=== PATIENT | female | born 1990 ===

== ENCOUNTER 2020-08-06 15:42 | Outpatient (REF) | payer SELFPAY ==
--- NOTE | 2020-08-06 | XR_ITS ---
EXAMINATION: XR CHEST CLINICAL INFORMATION: TB screening COMPARISON: Previous chest x-ray February 2020 TECHNIQUE: Frontal view of the chest was obtained. FINDINGS: No significant abnormality is noted involving the heart, lungs, mediastinum, bony thorax or soft tissues. XR/XR chest 1V IMPRESSION: Unremarkable examination.
== END 2020-08-06 15:43 | disposition home or self-care (01) ==
LOC: HO.XRAY 15:42
PROVIDERS: PCP Internal Medicine; Visit Provider Internal Medicine Critical Care Medicine
DX: Z11.1 Encounter for screening for respiratory tuberculosis (principal)
CPT/HCPCS: 71045

== ENCOUNTER 2020-11-12 12:45 | Outpatient (REF) | payer OTHER, SELFPAY | END 2020-11-12 12:46 | disposition home or self-care (01) | LOC: HO.LAB 12:45 | PROVIDERS: Visit Provider Internal Medicine | DX: Z20.822 Contact with and (suspected) exposure to COVID-19 (principal) | CPT/HCPCS: 36415; C9803; U0003; U0005 ==

== ENCOUNTER → 2021-03-05 10:06 | Outpatient (BNVA) | payer SELFPAY | DX: Z11.1 Encounter for screening for respiratory tuberculosis (principal) | CPT/HCPCS: 36415; 86481 ==

== ENCOUNTER 2021-05-04 09:07 | Emergency (ER) | payer SELFPAY ==
--- NOTE | ~2021-05-04 | CT_ITS ---
EXAMINATION: CT HEAD WITHOUT CONTRAST CLINICAL INFORMATION: Headache and seizure COMPARISON: August 27, 2018 TECHNIQUE: Contiguous axial imaging was performed from the skull base to vertex without intravenous administration of contrast. This CT examination was performed using dose optimization techniques as appropriate, variously including the following: *Automated exposure control *Adjustment of mA and/or kV according to patient size (this includes techniques or standardized protocols for targeted exams where dose is matched to indication/reason for exam; i.e. extremities or head) *Use of iterative reconstruction technique DLP: 631 mGy-cm FINDINGS: There is no evidence of acute intracranial hemorrhage or territorial infarction. No abnormal mass effect or midline shift is seen. [place] to white matter differentiation is well preserved. No extra-axial fluid collections are identified. The ventricles are normal in size. There is no abnormal attenuation within the brain parenchyma. The osseous structures and soft tissues are normal. The mastoid air cells and visualized portions of the paranasal sinuses are well aerated. CT/CT head/brain wo con IMPRESSION: No acute intracranial pathology.
[2021-05-04 09:13] VITALS: BP 128/90; PULSE 80; RESP 16; TEMP 36.4; O2SAT 99; BMI 32.9
--- NOTE | 2021-05-04 09:26 | ED.NEUROSD ---
HPI - Neuro Symptoms/Deficit General Chief Complaint: Neuro Symptoms/Deficit Stated Complaint: LUMP IN HEAD SORE TO TOUCH Time Seen by Provider: 05/04/21 09:26 Source: family Mode of arrival: ambulatory Limitations: no limitations History of Present Illness HPI Narrative: Patients spouse saw her having a panic attack that progressed into a seizure. Patient was unresponsive convulsing and foaming out of the mouth 1 month ago. Patient continues to have headaches and have pressure. Patient has had CT of head, MRI, and eeg in 2008. At one point patient had been on seizure medication. Onset (ago): month(s) Timing confirmed by: spouse History of same: Yes Severity: mild Quality: other (pressure) Exacerbating factors: other (stress) Context: gradual onset Associated symptoms: headaches Related Data Previous Rx's Medication Instructions Recorded naproxen [Naprosyn] 500 mg PO BID #20 tab 05/04/21 Allergies Allergy/AdvReac Type Severity Reaction Status Date / Time egg [Egg] Allergy Unknown UNKNOWN Unverified 09/24/20 13:09 morphine Allergy Unknown Verified 09/24/20 13:09 oxycodone [Percocet] Allergy Unknown Verified 09/24/20 13:09 acetaminophen [From PERCOCET] AdvReac Unknown NAUSEA & Unverified 09/24/20 13:09 VOMITING EGGS Allergy Unknown Uncoded 09/24/20 13:09 eggs Allergy Unknown Uncoded 09/24/20 13:09 From PERCOCET AdvReac Unknown NAUSEA & Uncoded 09/24/20 13:09 VOMITING Review of Systems Constitutional: Constitutional: Reports no additional constitutional complaints Eyes: Eyes: Reports no additional eye complaints ENT: Denies dizziness Cardiovascular: Cardiovascular: Reports no additional cardiovascular complaints Respiratory: Respiratory: Reports as per HPI Gastrointestinal: Gastrointestinal: Reports no additional gastrointestinal complaints Genitourinary: Genitourinary: Reports no additional female genitourinary complaints Musculoskeletal: Musculoskeletal: Reports no additional musculoskeletal complaints Integumentary/Breasts: Skin/Breast: Denies rash Neurologic: Reports system reviewed and no additional complaints, except as documented, Denies dizziness and Denies Sensory deficit (Neuro) Psychiatric: Psychiatric: Denies anxiety PMFSH Social History Social History Advance Directives: Yes Advance Directives Information Provided: Yes Advance Directives on File: No Patient : No Physical Exam Vital Signs: Vital Signs: Last Vital Signs Temp 97.5 F 05/04/21 09:13 Pulse 80 05/04/21 09:13 Resp 16 05/04/21 09:13 BP 128/90 H 05/04/21 09:13 Pulse Ox 99 05/04/21 09:13 Body Mass Index 32.9 Const: General: healthy appearing Nutritional Appearance: average body habitus Orientation/consciousness: oriented to person and patient oriented x3 Limitations: no limitations HENMT: Head: Yes normal to inspection Ears: external ears normal General nose exam: Normal external nose present Mouth: Normal oral and palatal mucosa present and oropharynx normal Throat: Yes posterior oropharynx normal Eyes: General: appearance normal, both eyes and all related structures Neck: Other: supple Neck: Yes normal visual inspection Chest: Chest palpation & inspection: normal inspection of the chest Resp: Auscultation: clear to auscultation bilaterally Cardio: Jugular venous distension: no JVD Rate: regular rate Rhythm: regular rhythm Heart sounds: S1 normal heart sound present and S2 normal heart sound present GI: Inspection: Yes normal to inspection Palpation (GI): Soft to palpation, nontender and No hepatosplenomegaly present Auscultation: normal bowel sounds : General: Yes no CVA tenderness Back/Spine/Pelvis: Back: no CVA tenderness Skin: General skin exam: no rashes or lesions noted Neuro: General: oriented to person and patient oriented x3 Cranial nerves: Yes CN's II-XII intact bilaterally Motor exam (neuro): 5/5 motor strength present throughout Sensory Exam: No Sensory deficit (Neuro) Extrem: General: Yes normal to inspection Psych: Appearance: grossly normal Course Reevaluation(s) Reevaluation #1: Labs, CT scan and EKG normal. History sounds like an anxiety component followed by possible seizure. will not start any seizure medication at this time. Will give naprosyn for headache and have patient follow up with her PMD Time: 11:12 [facility] [place] - Neuro Symptoms/Deficit Lab Data Result diagrams: 05/04/21 10:20 05/04/21 10:20 Labs: Lab Results 05/04/21 05/04/21 Range/Units 10:20 10:20 WBC 4.1 L (4.8-10.8) X10*3/uL RBC 4.16 L (4.20-5.50) X10*6/uL Hgb 13.0 (12.0-16.0) g/dl Hct 36.6 L (37-47) % MCV 88.0 (80-98) fL MCH 31.3 (27.0-33.0) pg MCHC 35.5 H (31.0-35.0) g/dl RDW 12.7 (11.0-16.0) % Plt Count 245 (160-400) X10*3/uL MPV 9.9 (9.4-12.3) fL Immature Gran % (Auto) 0.2 (0.0-0.4) % Neut % (Auto) 54.6 (45-73) % Lymph % (Auto) 31.9 (20-40) % [place] % (Auto) 9.2 (2-11) % Eos % (Auto) 3.6 (0-4) % Baso % (Auto) 0.5 (0-2) % Lymph # (Auto) 1.3 (1.2-4.9) X10*3/uL [place] # (Auto) 0.4 (0.1-1.2) X10*3/uL Eos # (Auto) 0.2 (0.0-0.4) X10*3/uL Baso # (Auto) 0.0 (0.0-0.2) X10*3/uL Abs Immat Gran (auto) 0.01 (0.00-0.03) X10*3/uL Absolute Neuts (auto) 2.3 (2.0-8.3) X10*3/uL Absolute Nucleated RBC 0.000 (0.0-0.012) X10*3/uL Nucleated RBC % (auto) 0.0 (0.0-0.2) /100WBC Sodium 138 (135-145) mmol/L Potassium 4.3 (3.3-5.1) mmol/L Chloride 105 (96-108) mmol/L Carbon Dioxide 26 (22-29) mmol/L Anion Gap 11 L (12-20) BUN 12 (9-16) mg/dL Creatinine 0.79 (0.5-1.4) mg/dL Estim Creat Clear Calc 105.1 Estimated GFR > 60 Random Glucose 91 (60-115) mg/dL Calcium 8.8 (8.4-10.2) mg/dL Imaging Data CT scan - head: Radiologist's impression: IMPRESSION: No acute intracranial pathology. ECG Data Attestation: I personally reviewed and interpreted this ECG as follows: Interpretation: normal sinus [address] or twave changes Discharge Plan Discharge Clinical Impression: Headache Qualifiers: Headache type: unspecified Headache chronicity pattern: acute headache Intractability: not intractable Qualified Code(s): R51.9 - Headache, unspecified Patient Disposition: Home, Self-Care Instructions: Acute Headache (ED) Prescriptions: New naproxen [Naprosyn] 500 mg tablet 500 mg PO BID Qty: 20 RF: 0 Referrals: Tomas Victoria MD [Primary Care Provider] - 1 week
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
--- NOTE | 2021-05-04 09:35 | ECG_ITS ---
Test Reason : NEURO Blood Pressure : / mmHG Vent. Rate : 070 BPM Atrial Rate : 070 BPM P-R Int : 140 ms QRS Dur : 072 ms QT Int : 378 ms P-R-T Axes : 018 054 037 degrees QTc Int : 408 ms Normal sinus rhythm Normal ECG When compared with ECG of 04-JAN-2006 14:50, QT has shortened Referred By: Salazar Viera Electronically Signed By:QUINN JANE
[2021-05-04] MEDS: Ketorolac Tromethamine 60 MG/2 ML VIAL IM (09:51)
[2021-05-04 10:24] LABS: MANUAL DIFF FLAG NO
[2021-05-04 10:27] LABS: Basophils Percent Auto 0.5 % (0-2); Eosinophils Absolute Auto 0.2 X10*3/uL (0.0-0.4); Eosinophils Percent Auto 3.6 % (0-4); Hematocrit 36.6 % (37-47); Imm Gran Abs Auto 0.01 X10*3/uL (0.00-0.03); Imm Gran Pct Auto 0.2 % (0.0-0.4); Lymphocytes Absolute Auto 1.3 X10*3/uL (1.2-4.9); Lymphocytes Percent Auto 31.9 % (20-40); Mean Corpuscular HGB Conc 35.5 g/dl (31.0-35.0); Mean Corpuscular Hemoglobin 31.3 pg (27.0-33.0); Mean Platelet Volume 9.9 fL (9.4-12.3); Monocytes Absolute Auto 0.4 X10*3/uL (0.1-1.2); Monocytes Percent Auto 9.2 % (2-11); Neutrophils Absolute Auto 2.3 X10*3/uL (2.0-8.3); Neutrophils Percent Auto 54.6 % (45-73); Platelet Count 245 X10*3/uL (160-400); Red Blood Count 4.16 X10*6/uL (4.20-5.50); Red Cell Distribution Width 12.7 % (11.0-16.0); White Blood Count 4.1 X10*3/uL (4.8-10.8)
[2021-05-04 10:46] LABS: Anion Gap 11 (12-20); Blood Urea Nitrogen 12 mg/dL (9-16); Calcium 8.8 mg/dL (8.4-10.2); Carbon Dioxide 26 mmol/L (22-29); Chloride 105 mmol/L (96-108); Creatinine Clr Calc Pharmacy 105.1; Estimated Glomerular Filt Rate > 60; Glucose Random 91 mg/dL (60-115); Potassium 4.3 mmol/L (3.3-5.1); Sodium 138 mmol/L (135-145)
[2021-05-04 11:09] VITALS: BP 126/85; PULSE 71; RESP 16; O2SAT 99
== END 2021-05-04 11:35 | disposition home or self-care (01) ==
PROVIDERS: Emergency Provider Emergency Medicine; PCP Internal Medicine
DX: R51.9 Headache, unspecified (principal)
CPT/HCPCS: 36415; 70450; 80048; 85025; 93005; 96372; 99284; 99285; J1885

== ENCOUNTER 2022-03-11 15:28 | Outpatient (REF) | payer OTHER, SELFPAY ==
[2022-03-11 15:45] LABS: MANUAL DIFF FLAG NO
[2022-03-11 15:56] LABS: Basophils Absolute Auto 0.1 X10*3/uL (0.0-0.2); Eosinophils Absolute Auto 0.1 X10*3/uL (0.0-0.4); Eosinophils Percent Auto 1.2 % (0-4); Hematocrit 38.4 % (37.0-47.0); Hemoglobin 13.4 g/dl (12.0-16.0); Imm Gran Abs Auto 0.02 X10*3/uL (0.00-0.03); Imm Gran Pct Auto 0.4 % (0.0-0.4); Lymphocytes Absolute Auto 1.8 X10*3/uL (1.2-4.9); Lymphocytes Percent Auto 34.7 % (20-40); Mean Corpuscular HGB Conc 34.9 g/dl (31.0-35.0); Mean Corpuscular Hemoglobin 30.8 pg (27.0-33.0); Mean Corpuscular Volume 88.3 fL (80.0-98.0); Mean Platelet Volume 10.3 fL (9.4-12.3); Monocytes Absolute Auto 0.4 X10*3/uL (0.1-1.2); Monocytes Percent Auto 7.8 % (2-11); Neutrophils Absolute Auto 2.8 x10*3/uL (2.0-8.3); Neutrophils Percent Auto 54.9 % (45-73); Platelet Count 315 X10*3/uL (160-400); Red Blood Count 4.35 X10*6/uL (4.20-5.50); Red Cell Distribution Width 13.1 % (11.0-16.0); White Blood Count 5.1 X10*3/uL (4.8-10.8)
[2022-03-11 16:20] LABS: Alanine Aminotransferase 20 U/L (0-31); Alkaline Phosphatase 59 U/L (39-117); Anion Gap 11 (12-20); Aspartate Amino Transferase 17 U/L (5-31); Bilirubin Total 0.4 mg/dL (0.0-1.0); Blood Urea Nitrogen 12 mg/dL (9-16); C Reactive Protein 0.23 mg/dL (< or = 0.50); Calcium 9.4 mg/dL (8.4-10.2); Carbon Dioxide 26 mmol/L (22-29); Chloride 108 mmol/L (96-108); Cholesterol 164 mg/dL; Estimated Glomerular Filt Rate > 60; Glucose Random 104 mg/dL (60-115); Sodium 141 mmol/L (135-145); Total Protein 7.2 g/dL (6.5-8.0)
[2022-03-11 16:41] LABS: Free T4 (Free Thyroxine) 1.06 ng/dL (0.71-1.85); Vitamin D 25-OH Total 7.6 ng/mL (>30)
[2022-03-14 01:52] LABS: TS Negative Control Passed; TS Panel A 0; TS Panel B 0; TS Positive Control Passed; TSpotTB Negative (Negative)
== END 2022-03-11 15:29 | disposition home or self-care (01) ==
LOC: HO.LAB 15:28
PROVIDERS: PCP Internal Medicine; Visit Provider Internal Medicine
DX: R51.9 Headache, unspecified (principal); E55.9 Vitamin D deficiency, unspecified; Z11.1 Encounter for screening for respiratory tuberculosis
CPT/HCPCS: 36415; 80053; 82306; 82465; 84439; 85025; 86140; 86481

== ENCOUNTER 2022-04-20 07:37 | Emergency (ER) | payer OTHER, SELFPAY ==
--- NOTE | ~2022-04-20 | US_ITS ---
EXAMINATION: US ABDOMEN LIMITED CLINICAL INFORMATION: Right upper quadrant and epigastric pain. COMPARISON: None. TECHNIQUE: Real-time imaging of the right upper quadrant abdominal viscera. FINDINGS: PANCREAS: Normal. LIVER: Normal. The liver is normal in size. The liver contour is normal. Parenchymal echogenicity is normal. No focal hepatic lesion. There is no intrahepatic biliary duct dilatation seen. GALLBLADDER: There are several echogenic stones in the fundus, with no wall thickening is seen. There is echogenic bile visualized. There is no pericholecystic fluid collection. There is mild tenderness in right upper quadrant with ultrasound probe. The gallbladder wall thickness is 0.2 cm. COMMON BILE DUCT: Normal in caliber measuring 0.4 cm in diameter. RIGHT KIDNEY: No hydronephrosis. There is an echogenic stone in the upper pole measuring 0.6 x 0.3 cm. There is no caliectasis. The kidney measures 10.6 cm in maximum dimension. FREE FLUID: None. US/US abdomen limited IMPRESSION: Small echogenic bile and small echogenic stones in the fundus with mild tenderness in right upper quadrant but no wall thickness. Small nonobstructive echogenic calculi in the upper pole right kidney measuring 6 mm.
[2022-04-20 07:41] VITALS: BP 109/72; PULSE 80; O2SAT 98
--- NOTE | 2022-04-20 07:42 | PC.NURSE ---
Pt to triage on arrival, VSS. IV to be removed
--- NOTE | 2022-04-20 07:44 | ECG_ITS ---
Test Reason : abd pain Blood Pressure : / mmHG Vent. Rate : 071 BPM Atrial Rate : 071 BPM P-R Int : 134 ms QRS Dur : 068 ms QT Int : 386 ms P-R-T Axes : 021 051 025 degrees QTc Int : 419 ms Sinus rhythm with marked sinus arrhythmia Otherwise normal ECG When compared with ECG of 04-MAY-2021 10:07, No significant change was found Referred By: Generic ED Physician Electronically Signed By:KT FRANCO MD
[2022-04-20 09:33] VITALS: BP 116/79; PULSE 78; RESP 17; TEMP 36.6; O2SAT 98; BMI 29.5
[2022-04-20 10:04] LABS: MANUAL DIFF FLAG NO
[2022-04-20 10:06] LABS: Appearance Urine HAZY; Color Urine YELLOW; Glucose Urine UA NEG (NEG); Leukocyte Esterase Urine NEG (NEG); Nitrite Urine NEG (NEG); PH 5.5 (5.0-8.0); Specific Gravity - Urine >= 1.030 (1.005-1.025); UACC Culture Trigger NO; Urine Blood TRACE (NEG); Urine Ketones NEG (NEG); Urine Protein NEG (NEG-TRACE)
[2022-04-20 10:07] LABS: UPreg QC Valid YES; Urine Pregnancy NEGATIVE (NEGATIVE)
[2022-04-20 10:09] LABS: Basophils Percent Auto 0.5 % (0-2); Eosinophils Absolute Auto 0.1 X10*3/uL (0.0-0.4); Eosinophils Percent Auto 1.2 % (0-4); Hematocrit 39.6 % (37.0-47.0); Hemoglobin 13.8 g/dl (12.0-16.0); Imm Gran Abs Auto 0.02 X10*3/uL (0.00-0.03); Imm Gran Pct Auto 0.3 % (0.0-0.4); Lymphocytes Absolute Auto 1.1 X10*3/uL (1.2-4.9); Lymphocytes Percent Auto 19.6 % (20-40); Mean Corpuscular HGB Conc 34.8 g/dl (31.0-35.0); Mean Platelet Volume 10.4 fL (9.4-12.3); Monocytes Absolute Auto 0.5 X10*3/uL (0.1-1.2); Monocytes Percent Auto 7.8 % (2-11); Neutrophils Absolute Auto 4.1 x10*3/uL (2.0-8.3); Neutrophils Percent Auto 70.6 % (45-73); Platelet Count 254 X10*3/uL (160-400); Red Blood Count 4.45 X10*6/uL (4.20-5.50); Red Cell Distribution Width 13.7 % (11.0-16.0); White Blood Count 5.8 X10*3/uL (4.8-10.8)
[2022-04-20 10:16] LABS: Bacteria Urine TRACE /LPF; RBC Urine 0-2 /HPF (0); Squamous Epithelial Cell Urine 1+ /LPF; WBC Urine 0-2 /HPF (0-4)
[2022-04-20 10:17] LABS: Mucus Urine TRACE /LPF
[2022-04-20 10:21] LABS: Alanine Aminotransferase 59 U/L (0-31); Albumin Level 4.1 g/dL (3.5-5.0); Alkaline Phosphatase 50 U/L (39-117); Anion Gap 11 (12-20); Aspartate Amino Transferase 29 U/L (5-31); Bilirubin Direct 0.2 mg/dL (0.0-0.5); Bilirubin Total 0.2 mg/dL (0.0-1.0); Blood Urea Nitrogen 14 mg/dL (9-16); Calcium 8.8 mg/dL (8.4-10.2); Carbon Dioxide 25 mmol/L (22-29); Chloride 105 mmol/L (96-108); Creatinine Clr Calc Pharmacy 89.8; Estimated Glomerular Filt Rate > 60; Glucose Random 98 mg/dL (60-115); Lipase 20 U/L (8-78); Potassium 4.2 mmol/L (3.3-5.1); Sodium 137 mmol/L (135-145); Total Protein 6.9 g/dL (6.5-8.0)
--- NOTE | 2022-04-20 13:43 | ED_ITS ---
HPI - Abdominal Pain General Chief Complaint: Abdominal Pain Stated Complaint: RUQ PAIN Time Seen by Provider: 04/20/22 07:55 Source: patient Mode of arrival: EMS History of Present Illness HPI narrative: 32-year-old female without significant past medical history presents via EMS for right upper quadrant/epigastric pain that is sharp and intermittent in nature for the past 2 days and associated with nausea as well as radiation of pain into the back. Patient does report that the pain is worse in the morning and is associated with the nausea than and then throughout the day seems to improved. Patient denies association with meals, she does consume alcohol and had a couple shots last night with a few IPAs. Otherwise, she denies shortness of breath, chest pain, diarrhea, urinary pain/burning/frequency. Related Data Previous Rx's Medication Instructions Recorded naproxen 500 mg tablet (Naprosyn) 500 mg PO BID #20 tabs 05/04/21 omeprazole 40 mg capsule,delayed 40 mg PO DAILY #30 caps 04/20/22 release Allergies Allergy/AdvReac Type Severity Reaction Status Date / Time egg [Egg] Allergy Unknown UNKNOWN Unverified 09/24/20 13:09 morphine Allergy Unknown Verified 09/24/20 13:09 oxycodone [Percocet] Allergy Unknown Verified 09/24/20 13:09 acetaminophen [From PERCOCET] AdvReac Unknown NAUSEA & Unverified 09/24/20 13:09 VOMITING EGGS Allergy Unknown Uncoded 09/24/20 13:09 eggs Allergy Unknown Uncoded 09/24/20 13:09 From PERCOCET AdvReac Unknown NAUSEA & Uncoded 09/24/20 13:09 VOMITING Review of Systems Review of Systems Pertinent positives and negatives as stated in HPI 10 point review of systems is otherwise negative. PMFSH Past Medical History Source: nursing notes reviewed Social History Social History Advance Directives: No Advance Directives Information Provided: No Physical Exam ED Vital Signs: Vital Signs - 24 hr 04/20/22 09:33 Temperature 98 F Pulse Rate 78 Respiratory Rate 17 Blood Pressure 116/79 Pulse Oximetry 98 Oxygen Delivery Method Room Air BMI result Body Mass Index 29.5 VITAL SIGNS: Reviewed. GENERAL: Well developed, well nourished, in no acute distress. HEAD: Normocephalic/atraumatic EYES: PERRLA, EOMI EARS: Ext canals without abnormality OROPHARYNX: no oral lesions noted, posterior pharynx clear LUNGS: Normal breath sounds. No adventitious sounds or accessory muscle use. SpO2<98> CARDIOVASCULAR: Regular rate and rhythm without noted murmurs ABDOMEN: Soft, mild tenderness on palpation which is maximal affect epigastric more so than right upper quadrant, no rebound,, non-distended with bowel sounds. MUSCULOSKELETAL: No tenderness, deformities, or effusions noted on gross inspection. EXTREMITIES: No cyanosis, clubbing or edema. SKIN: Inspection of the skin reveals no rashes NEUROLOGIC: Alert and oriented x 4. Strength and sensation to light touch were grossly intact x 4. Course Course Course Narrative: 32-year-old female with history and clinical presentation suggestive of possible gastritis/ulcer, pancreatitis, cholecystitis. Review of all investigations demonstrates cholelithiasis and a right renal calculi, otherwise on re-evaluation patient states she has had good relief after the GI cocktail. Although there was cholelithiasis highly suspicious that this is an underlying gastritis/ulcer condition. All results and plans discussed with the patient at bedside. MDM - Abdominal Pain Lab Data Result diagrams: 04/20/22 09:59 04/20/22 09:59 Labs: Lab Results 04/20/22 04/20/22 04/20/22 Range/Units 09:59 09:59 10:00 WBC 5.8 (4.8-10.8) X10*3/uL RBC 4.45 (4.20-5.50) X10*6/uL Hgb 13.8 (12.0-16.0) g/dl Hct 39.6 (37.0-47.0) % MCV 89.0 (80.0-98.0) fL MCH 31.0 (27.0-33.0) pg MCHC 34.8 (31.0-35.0) g/dl RDW 13.7 (11.0-16.0) % Plt Count 254 (160-400) X10*3/uL MPV 10.4 (9.4-12.3) fL Immature Gran % (Auto) 0.3 (0.0-0.4) % Neut % (Auto) 70.6 (45-73) % Lymph % (Auto) 19.6 L (20-40) % [place] % (Auto) 7.8 (2-11) % Eos % (Auto) 1.2 (0-4) % Baso % (Auto) 0.5 (0-2) % Lymph # (Auto) 1.1 L (1.2-4.9) X10*3/uL [place] # (Auto) 0.5 (0.1-1.2) X10*3/uL Eos # (Auto) 0.1 (0.0-0.4) X10*3/uL Baso # (Auto) 0.0 (0.0-0.2) X10*3/uL Abs Immat Gran (auto) 0.02 (0.00-0.03) X10*3/uL Absolute Neuts (auto) 4.1 (2.0-8.3) x10*3/uL Absolute Nucleated RBC 0.000 (0.0-0.012) X10*3/uL Nucleated RBC % (auto) 0.0 (0.0-0.2) /100WBC Sodium 137 (135-145) mmol/L Potassium 4.2 (3.3-5.1) mmol/L Chloride 105 (96-108) mmol/L Carbon Dioxide 25 (22-29) mmol/L Anion Gap 11 L (12-20) BUN 14 (9-16) mg/dL Creatinine 0.90 (0.5-1.4) mg/dL Estim Creat Clear Calc 89.8 Estimated GFR > 60 Random Glucose 98 (60-115) mg/dL Calcium 8.8 D (8.4-10.2) mg/dL Total Bilirubin 0.2 (0.0-1.0) mg/dL Direct Bilirubin 0.2 (0.0-0.5) mg/dL AST 29 D (5-31) U/L ALT 59 H (0-31) U/L Alkaline Phosphatase 50 (39-117) U/L Total Protein 6.9 (6.5-8.0) g/dL Albumin 4.1 (3.5-5.0) g/dL Lipase 20 (8-78) U/L Urine Color YELLOW Urine Appearance HAZY Urine pH 5.5 (5.0-8.0) Ur Specific [place] >= 1.030 H (1.005-1.025) Urine Protein NEG (NEG-TRACE) MG/DL Urine Glucose (UA) NEG (NEG) MG/DL Urine Ketones NEG (NEG) MG/DL Urine Blood TRACE (NEG) Urine Nitrite NEG (NEG) Ur Leukocyte Esterase NEG (NEG) Urine RBC 0-2 (0) /HPF Urine WBC 0-2 (0-4) /HPF Ur Squamous Epith Cells 1+ /LPF Urine Bacteria TRACE /LPF Urine Mucus TRACE /LPF Urine Test (NEGATIVE) 04/20/22 Range/Units 10:00 WBC (4.8-10.8) X10*3/uL RBC (4.20-5.50) X10*6/uL Hgb (12.0-16.0) g/dl Hct (37.0-47.0) % MCV (80.0-98.0) fL MCH (27.0-33.0) pg MCHC (31.0-35.0) g/dl RDW (11.0-16.0) % Plt Count (160-400) X10*3/uL MPV (9.4-12.3) fL Immature Gran % (Auto) (0.0-0.4) % Neut % (Auto) (45-73) % Lymph % (Auto) (20-40) % [place] % (Auto) (2-11) % Eos % (Auto) (0-4) % Baso % (Auto) (0-2) % Lymph # (Auto) (1.2-4.9) X10*3/uL [place] # (Auto) (0.1-1.2) X10*3/uL Eos # (Auto) (0.0-0.4) X10*3/uL Baso # (Auto) (0.0-0.2) X10*3/uL Abs Immat Gran (auto) (0.00-0.03) X10*3/uL Absolute Neuts (auto) (2.0-8.3) x10*3/uL Absolute Nucleated RBC (0.0-0.012) X10*3/uL Nucleated RBC % (auto) (0.0-0.2) /100WBC Sodium (135-145) mmol/L Potassium (3.3-5.1) mmol/L Chloride (96-108) mmol/L Carbon Dioxide (22-29) mmol/L Anion Gap (12-20) BUN (9-16) mg/dL Creatinine (0.5-1.4) mg/dL Estim Creat Clear Calc Estimated GFR Random Glucose (60-115) mg/dL Calcium (8.4-10.2) mg/dL Total Bilirubin (0.0-1.0) mg/dL Direct Bilirubin (0.0-0.5) mg/dL AST (5-31) U/L ALT (0-31) U/L Alkaline Phosphatase (39-117) U/L Total Protein (6.5-8.0) g/dL Albumin (3.5-5.0) g/dL Lipase (8-78) U/L Urine Color Urine Appearance Urine pH (5.0-8.0) Ur Specific [place] (1.005-1.025) Urine Protein (NEG-TRACE) MG/DL Urine Glucose (UA) (NEG) MG/DL Urine Ketones (NEG) MG/DL Urine Blood (NEG) Urine Nitrite (NEG) Ur Leukocyte Esterase (NEG) Urine RBC (0) /HPF Urine WBC (0-4) /HPF Ur Squamous Epith Cells /LPF Urine Bacteria /LPF Urine Mucus /LPF Urine Test NEGATIVE (NEGATIVE) ECG Data Attestation: I personally reviewed and interpreted this ECG as follows: Prior ECG tracings: available for review Interpretation: NSR, HR-71, no STEMI, UT/QRS/QTC are within normal limits. Discharge Plan Discharge Clinical Impression: Cholelithiasis, Gastritis, Renal calculi Patient Disposition: Home, Self-Care Instructions: Omeprazole (By mouth), Gastritis (ED), Gallstones (ED), Diet for Stomach Ulcers and Gastritis (ED) Additional Instructions: 1. Recommend that you avoid all spicy, fatty, carbonated/caffeinated/alcoholic beverages and take medications that you have been prescribed as directed. You should also be cautious with the use of ibuprofen/Motrin/naproxen as this can also irritate your stomach. 2. I have provided a referral for General surgery follow-up should you decide to pursue elective surgery for your gallstones. 3. Follow-up with your primary care provider the next 2-3 days for re- evaluation. Return to the ER for worsening symptoms. Prescriptions: New omeprazole 40 mg capsule,delayed release(DR/EC) 40 mg PO DAILY Qty: 30 0RF No Action naproxen [Naprosyn] 500 mg tablet 500 mg PO BID Qty: 20 0RF Referrals: Tomas Victoria MD [Primary Care Provider] - Tomas Thomas MD [Physician] -
[2022-04-20] MEDS: Magnesium Hydrox/Alum Hydrox 30 ML ORAL.SUSP PO (14:29)
[2022-04-20] MEDS: Lidocaine HCl Viscous 2 % 15 ML SOLUTION 10 ML MUCOUS MEM (14:29)
[2022-04-20 16:52] VITALS: BP 112/79; PULSE 66; RESP 16; TEMP 36.9; O2SAT 98
== END 2022-04-20 17:31 | disposition home or self-care (01) ==
PROVIDERS: Emergency Provider Student in an Organized Health Care Education/Training Program; PCP Internal Medicine
DX: N20.0 Calculus of kidney (principal); K29.70 Gastritis, unspecified, without bleeding; K80.20 Calculus of gallbladder without cholecystitis without obstruction; R10.11 Right upper quadrant pain; M54.50 Low back pain, unspecified; R10.13 Epigastric pain; R07.89 Other chest pain; Z79.899 Other long term (current) drug therapy
CPT/HCPCS: 36415; 76705; 80048; 80076; 81001; 81025; 83690; 85025; 93005; 99284

== ENCOUNTER → 2022-05-06 15:10 | Outpatient (BNVA) | payer OTHER, SELFPAY | PROVIDERS: PCP Internal Medicine; Visit Provider Surgery | DX: K80.20 Calculus of gallbladder without cholecystitis without obstruction (principal); K29.70 Gastritis, unspecified, without bleeding; R79.89 Other specified abnormal findings of blood chemistry; Z72.0 Tobacco use | CPT/HCPCS: 99202 ==

== ENCOUNTER → 2022-06-23 08:37 | Outpatient (BNVA) | payer OTHER, SELFPAY | PROVIDERS: PCP Internal Medicine; Visit Provider Surgery | DX: R79.89 Other specified abnormal findings of blood chemistry (principal); K29.70 Gastritis, unspecified, without bleeding; K80.20 Calculus of gallbladder without cholecystitis without obstruction; Z72.0 Tobacco use | CPT/HCPCS: 99212 ==

== ENCOUNTER → 2022-07-01 10:43 | Outpatient (REF) | payer OTHER, SELFPAY ==
--- NOTE | ~2022-07-01 | NM_ITS ---
EXAMINATION: BILIARY TRACT IMAGING STUDY CLINICAL INDICATION: Calculus of gallbladder without cholecystitis and/or obstruction. COMPARISON: Right upper quadrant abdominal ultrasound done on 04/20/2022. TECHNIQUE: Scintillation camera images were obtained over the abdomen for an observation of 60 minutes following the intravenous administration of 3.0 millicuries technetium 99m mebrofenin. FINDINGS: There is good concentration of activity in the liver by 5 minutes post injection. Biliary activity is well visualized by 10 minutes, and there is good visualization of small bowel activity by 55 minutes. The gallbladder is well visualized by 20 minutes. NM/NM hepatobiliary wo pharm IMPRESSION: Normal biliary scan. Visualization of the gallbladder is evidence of a patent cystic duct and strong evidence against the diagnosis of acute cholecystitis. The common bile duct is patent. Liver function appears normal.
== END ==
LOC: HO.NUCMED 10:43
PROVIDERS: PCP Internal Medicine; Visit Provider Surgery
DX: R79.89 Other specified abnormal findings of blood chemistry (principal); K80.20 Calculus of gallbladder without cholecystitis without obstruction
CPT/HCPCS: 78226; A9537

== ENCOUNTER 2022-07-14 15:54 | Outpatient (REF) | payer OTHER, SELFPAY ==
[2022-07-16 02:52] LABS: CT PCR NOT DETECTED (Not Detect.); NG PCR NOT DETECTED (Not Detect.)
[2022-07-16 13:24] LABS: BV Int Neg Control Negative (Negative); BV Int Pos Control Positive (Positive)
[2022-07-23 01:31] LABS: HPV 16 RNA NOT DETECTED (NOT DETECTED); HPV mRNA E6/E7 rflx Detected (Not Detected)
== END 2022-07-14 15:55 | disposition home or self-care (01) ==
LOC: HO.LNP 15:54
PROVIDERS: Visit Provider Obstetrics & Gynecology
DX: Z11.3 Encounter for screening for infections with a predominantly sexual mode of transmission (principal); Z12.4 Encounter for screening for malignant neoplasm of cervix; Z11.51 Encounter for screening for human papillomavirus (HPV)
CPT/HCPCS: 87480; 87491; 87510; 87591; 87624; 87625; 87660; 88142

== ENCOUNTER 2022-07-21 09:11 | Outpatient (REF) | payer OTHER, SELFPAY ==
[2022-07-21 10:03] LABS: Hematocrit 38.2 % (37.0-47.0); Hemoglobin 13.3 g/dl (12.0-16.0); Mean Corpuscular HGB Conc 34.8 g/dl (31.0-35.0); Mean Corpuscular Hemoglobin 30.7 pg (27.0-33.0); Mean Corpuscular Volume 88.2 fL (80.0-98.0); Mean Platelet Volume 10.1 fL (9.4-12.3); Platelet Count 302 X10*3/uL (160-400); Red Blood Count 4.33 X10*6/uL (4.20-5.50); Red Cell Distribution Width 12.9 % (11.0-16.0); White Blood Count 4.6 X10*3/uL (4.8-10.8)
[2022-07-21 10:56] LABS: HCG Quantitative < 2 mIU/mL; TSH reflex Free T4 0.46 uIU/mL (0.32-4.0)
[2022-07-21 10:57] LABS: HBsAGNum1 0.15 S/CO (0.00-0.99); HIV AB/AG Nonreactive (Nonreactive); HIV Num 1 0.06 S/CO (0.00-0.99); Hepatitis B Surface Antigen Negative (Negative); ~HepC Num1 0.14 S/CO (0.00-0.79); ~Hepatitis C Antibody Nonreactive (Nonreactive)
[2022-07-22 05:32] LABS: Syphilis Screen Nonreactive (Nonreactive)
== END 2022-07-21 09:12 | disposition home or self-care (01) ==
LOC: HO.LAB 09:11
PROVIDERS: PCP Internal Medicine; Visit Provider Obstetrics & Gynecology
DX: Z11.4 Encounter for screening for human immunodeficiency virus [HIV] (principal); K29.70 Gastritis, unspecified, without bleeding; K80.20 Calculus of gallbladder without cholecystitis without obstruction; R79.89 Other specified abnormal findings of blood chemistry; N93.9 Abnormal uterine and vaginal bleeding, unspecified; Z72.0 Tobacco use; Z71.6 Tobacco abuse counseling
CPT/HCPCS: 36415; 84443; 84702; 85027; 86780; 86803; 87340; 87389; 99212

== ENCOUNTER 2022-08-10 08:30 | Outpatient (REF) | payer OTHER, SELFPAY ==
[2022-08-11 13:45] LABS: H Pylori Breath Test Negative (Negative)
== END 2022-08-10 08:31 | disposition home or self-care (01) ==
LOC: HO.LNP 08:30
PROVIDERS: PCP Internal Medicine; Visit Provider Physician Assistant
DX: K29.70 Gastritis, unspecified, without bleeding (principal); K21.9 Gastro-esophageal reflux disease without esophagitis; A04.8 Other specified bacterial intestinal infections
CPT/HCPCS: 83013; 99202; 99212

== ENCOUNTER 2022-08-19 11:29 | Outpatient (REF) | payer OTHER, SELFPAY ==
--- NOTE | ~2022-08-19 | US_ITS ---
EXAMINATION: US PELVIS CLINICAL INFORMATION: Abnormal uterine and vaginal bleeding, last menstrual period 08/16/2022 COMPARISON: None TECHNIQUE: Ultrasound of the pelvis is performed using both transabdominal and transvaginal transducers along with Doppler. Transvaginal imaging is performed due to inadequate visualization transabdominally. FINDINGS: Uterus is heterogeneous and measures 9.1 x 4.8 x 5.2 cm. There is a 0.9 x 0.7 x 1.1 cm fibroid. No significant free fluid. Endometrial thickness is 0.4 cm, multilayered. Multiple small ovarian cysts, likely small follicles, physiologic. US/US pelvic and transvaginal IMPRESSION: 1. Uterine 1.1 cm fibroid. 2. Endometrial thickness is 0.4 cm. 3. Bilateral ovaries demonstrate multiple follicles.
== END 2022-08-19 11:30 | disposition home or self-care (01) ==
LOC: HO.US 11:29
PROVIDERS: Visit Provider Obstetrics & Gynecology
DX: N93.9 Abnormal uterine and vaginal bleeding, unspecified (principal)
CPT/HCPCS: 76830; 76856

== ENCOUNTER → 2022-09-01 14:06 | Outpatient (BNVA) | payer OTHER, SELFPAY | PROVIDERS: PCP Internal Medicine; Visit Provider Surgery | DX: K29.70 Gastritis, unspecified, without bleeding (principal); K80.20 Calculus of gallbladder without cholecystitis without obstruction; R79.89 Other specified abnormal findings of blood chemistry; Z72.0 Tobacco use | CPT/HCPCS: 99212 ==

== ENCOUNTER → 2022-09-02 10:48 | Outpatient (BNVA) | payer OTHER, SELFPAY | PROVIDERS: PCP Internal Medicine; Visit Provider Obstetrics & Gynecology | DX: N93.9 Abnormal uterine and vaginal bleeding, unspecified (principal); D21.9 Benign neoplasm of connective and other soft tissue, unspecified | CPT/HCPCS: 99212 ==

== ENCOUNTER 2022-09-21 10:51 | Outpatient (REF) | payer OTHER, SELFPAY | END 2022-09-21 10:52 | disposition home or self-care (01) | LOC: HO.LNP 10:51 | PROVIDERS: PCP Internal Medicine; Visit Provider Obstetrics & Gynecology | DX: Z32.02 Encounter for pregnancy test, result negative (principal); A63.0 Anogenital (venereal) warts; B97.7 Papillomavirus as the cause of diseases classified elsewhere | CPT/HCPCS: 57454; 81025; 88305; 88342; 88360 ==

== ENCOUNTER → 2022-10-14 11:40 | Outpatient (BNVA) | payer OTHER, SELFPAY | PROVIDERS: PCP Internal Medicine; Visit Provider Obstetrics & Gynecology | DX: N87.1 Moderate cervical dysplasia (principal); Z98.890 Other specified postprocedural states | CPT/HCPCS: 99212 ==

== ENCOUNTER 2022-11-06 10:46 | Day surgery (SDC) | payer OTHER, SELFPAY ==
[2022-10-30 13:45] VITALS: BMI 27.1
--- NOTE | 2022-11-05 09:38 | P.CONAN_ITS ---
Documented by User: Kristen Del Toro NP 11/05/22 09:38 HPI - Anesthesia Eval Consult details Narrative: 32yo F for LEEP,poss cone with post cone ECC PMFSH Active Problems Active Problems: All Active Problems (Updated 10/30/22 @ 13:40 by Elissa Monson, RN) Gallstone (Acute) Gastritis (Acute) Nicotine use (Acute) Abnormal LFTs (Acute) Well woman exam (Acute) Abnormal uterine bleeding (AUB) (Acute) Screen for STD (sexually transmitted disease) (Acute) H. pylori infection (Acute) HPV test positive (Acute) Myoma (Acute) HPV in female (Acute) ALBERTA II (cervical intraepithelial neoplasia II) (Acute) Past Medical History Medical History Anxiety Bipolar disorder History of gallstones Surgical History Surgical History H/O knee surgery History of hip surgery Hx of shoulder surgery Social History Social History Household Members: Family Alcohol intake: current Alcohol intake frequency: does not drink Patient Tobacco Use Status: Current everyday Tobacco user Substance Use Type: Marijuana Are you DNR?: No Advance Directives: No Advance Directives Information Provided: Yes Recently lost weight without trying: No Nutrition Risks: No Nutritional Risk Patient : No FDLMP: now Current occupational status: employed 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 Allergy/AdvReac Type Severity Reaction Status Date / Time egg [Egg] Allergy Unknown Anaphylaxis Verified 11/06/22 11:22 morphine Allergy Unknown Nausea and Verified 11/06/22 11:22 Vomiting oxycodone [Percocet] Allergy Unknown Nausea and Verified 11/06/22 11:22 Vomiting acetaminophen [From PERCOCET] AdvReac Unknown NAUSEA & Verified 11/06/22 11:22 VOMITING Exam Exam Date and Time: November 05, 2022 0938 Height,Weight and Vital Signs: Height 5 ft 4 in Weight 71.668 kg Assessment and Plan Assessment Anesthesia Assessment: Chart Reviewed Documented by User: Nani Grgeory MD 11/06/22 13:05 PMFSH Active Problems Active Problems: All Active Problems (Updated 10/30/22 @ 13:40 by Elissa Mnoson RN) Gallstone (Acute) Gastritis (Acute) Nicotine use (Acute) Abnormal LFTs (Acute) Well woman exam (Acute) Abnormal uterine bleeding (AUB) (Acute) Screen for STD (sexually transmitted disease) (Acute) H. pylori infection (Acute) HPV test positive (Acute) Myoma (Acute) HPV in female (Acute) ALBERTA II (cervical intraepithelial neoplasia II) (Acute) Past Medical History Medical History Anxiety Bipolar disorder History of gallstones Surgical History Surgical History H/O knee surgery History of hip surgery Hx of shoulder surgery History of Problems with Anesthesia: No Social History Social History Household Members: Family Alcohol intake: current Alcohol intake frequency: does not drink Patient Tobacco Use Status: Current everyday Tobacco user Substance Use Type: Marijuana Are you DNR?: No Advance Directives: No Advance Directives Information Provided: Yes Recently lost weight without trying: No Nutrition Risks: No Nutritional Risk Patient : No FDLMP: now Current occupational status: employed 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 Allergy/AdvReac Type Severity Reaction Status Date / Time egg [Egg] Allergy Unknown Anaphylaxis Verified 11/06/22 11:22 morphine Allergy Unknown Nausea and Verified 11/06/22 11:22 Vomiting oxycodone [Percocet] Allergy Unknown Nausea and Verified 11/06/22 11:22 Vomiting acetaminophen [From PERCOCET] AdvReac Unknown NAUSEA & Verified 11/06/22 11:22 VOMITING Exam Airway Mallampati Class: I TM Dist: >3cm Neck ROM: Full Partial: Lower Loose/Missing/Broken Teeth: Yes and Lower Heart: RRR Lungs: CTA Assessment and Plan Assessment Anesthesia Assessment: Anesthesia Plan Discussed Final Anesthetic Review History of Problems with Anesthesia: No NPO: Yes ASA Class: II Final Preanesthetic Review: Meds/Allgs Chart Reviewed, Consent Obtained/Reviewed and Anes Risks/Benef Reviewed Patient Risk: Low Procedure Risk: Low Anesthetic Plan Anesthetic Plan: GA Disposition: Standard PACU
[2022-11-06 10:54] VITALS: BP 104/65; PULSE 73; RESP 18; TEMP 36.6; O2SAT 97
[2022-11-06 11:10] LABS: UPreg QC Valid YES; Urine Pregnancy NEGATIVE (NEGATIVE)
[2022-11-06] MEDS: Lactated Ringers 1,000 ML 100 ML IVCONT (11:19)
--- NOTE | 2022-11-06 11:26 | MHC.SHP ---
Pre-Procedural Eval Section A Date of Service: 11/06/22 The patient is an INPATIENT: No Changes since office visit: No Cold of Flu in the past 2 weeks, No New Medical Problems, No Changes in Medication and No Patient answered all questions The History & Physical has been completed within 30 days and I have reviewed it.: Yes Section B Chief Complaint: Moderate cervical dysplasia Allergies: Allergies Allergy/AdvReac Type Severity Reaction Status Date / Time egg [Egg] Allergy Unknown Anaphylaxis Verified 11/06/22 11:22 morphine Allergy Unknown Nausea and Verified 11/06/22 11:22 Vomiting oxycodone [Percocet] Allergy Unknown Nausea and Verified 11/06/22 11:22 Vomiting acetaminophen [From PERCOCET] AdvReac Unknown NAUSEA & Verified 11/06/22 11:22 VOMITING Plan Diagnosis/Plan: Unchanged I have reviewed the history and physical and performed a pertinent physical examination on my patient. No changes have occurred unless specified. Time Spent With Patient Time: Total time managing care of this patient today ____ minutes.
--- NOTE | 2022-11-06 13:20 | PM.OP ---
Brief Operative Note Date of Service: 11/06/22 Pre-op diagnosis: ALBERTA 2 Post-op diagnosis: same Procedure: LEEP CONE with post CONE ECC Surgeon: Reno Edwards MD Anesthesia: GLMA and other (Paracervical block) Was an Consulting Practice Manager used for this Procedure?: No Estimated blood loss (mL): 0 Pathology: other (Cervical cone, top-hat, Post cone ECC) Condition: stable Disposition: other (Home)
--- NOTE | 2022-11-06 13:22 | P.OP_ITS ---
Operative Note Operative Note Date of Service: 11/06/22 Narrative: Pre op diagnosis: ALBERTA 2 Operation: Colposcopy, Loop electrical excision procedure cone, top hat endocervical excision, post cone ECC Postop diagnosis: the same Quantitative blood loss: 50 cc Surgeon: Reno Edwards MD, FACOG Brush And Broom Clipper: None Pathology: Cervical cone, top-hat endo cervical excision, endo cervical curettage Complications: none Anesthesia: MAC and Para cervical block Procedure: The patient was put in a dorsal lithotomy position, scrubbed and draped in the usual sterile fashion. A speculum was inserted inside the patient's vagina. The cervix is assessed using the colposcope with acetic acid , the lesions were seen, and at least 1 cm of the squamocolumnar junction was observed. 20 x 5 mm size loop was selected based upon the diameter of the lesion. Lugol solution was used to outline the lesions and area of the transformation zone order to be removed 10 cc of xylocaine with epinephrine were injected submucosally into the surface of the cervix (ectocervix) at the 3, 6, 9, and 12 o'clock positions. The electrosurgical generator is set at 40 guerra on blend 1. The loop is carefully passed simultaneously around and under the transformation zone, in order to ensure excising it making sure the lesion is at least 5 mm far from the specimen margins . The loop was allowed to glide through the cervix from one side to the other, allowing the cutting current to divide the tissue. Since the entire endo cervical canal was not visualized well, endo cervical disease could be beyond the reach of the loop, additional tissue was excised from this area with a smaller-diameter loop , endo cervical top-hat excision was performed An endo cervical curettage is performed following completion of excision, and hemostasis is obtained with a Ball electrode or regular tip cautery. At the end, Monsel's solution was applied to the cone bed. The patient tolerated the procedure well and, all instruments were taken out of the patient vaginal cavity, and the patient was transferred to the PACU in stable condition.
[2022-11-06 13:29] VITALS: BP 106/68; PULSE 103; RESP 20; TEMP 36.4; O2SAT 98
[2022-11-06 13:34] VITALS: BP 108/70; PULSE 91; RESP 16; O2SAT 96
[2022-11-06 13:39] VITALS: BP 117/73; PULSE 77; RESP 16; O2SAT 96
[2022-11-06 13:43] VITALS: BP 112/73; PULSE 63; RESP 16; O2SAT 98
[2022-11-06 13:58] VITALS: BP 109/75; PULSE 67; RESP 16; TEMP 36.4; O2SAT 98
== END 2022-11-06 14:16 | disposition home or self-care (01) ==
PROVIDERS: PCP Internal Medicine; Visit Provider Obstetrics & Gynecology
PROC: 0UBC7ZZ Excision of Cervix, Via Natural or Artificial Opening (ICD-10-PCS; CPT 57522; principal; 2022-11-06 13:10)
DX: D06.0 Carcinoma in situ of endocervix (principal); F31.9 Bipolar disorder, unspecified; F41.1 Generalized anxiety disorder; Z88.8 Allergy status to other drugs, medicaments and biological substances; Z91.012 Allergy to eggs; F17.210 Nicotine dependence, cigarettes, uncomplicated; F12.90 Cannabis use, unspecified, uncomplicated; Z79.899 Other long term (current) drug therapy
CPT/HCPCS: 57461; 81025; 88305; 88307; 88342; J1885; J2250; J2405; J3010

== ENCOUNTER 2022-11-10 10:30 | Outpatient (REF) | payer OTHER, SELFPAY ==
[2022-11-11 04:59] LABS: HBS Num1 2.95 mIU/mL (0-7.99); ~Hepatitis B Surface Antibody NONREACTIVE (Nonreactive)
== END 2022-11-10 10:31 | disposition home or self-care (01) ==
LOC: HO.10HDL 10:30
PROVIDERS: Visit Provider Internal Medicine
DX: Z02.0 Encounter for examination for admission to educational institution (principal)
CPT/HCPCS: 36415; 86706

== ENCOUNTER → 2022-11-19 10:40 | Outpatient (BNVA) | payer OTHER, SELFPAY | PROVIDERS: PCP Internal Medicine; Visit Provider Obstetrics & Gynecology | DX: D06.9 Carcinoma in situ of cervix, unspecified (principal) | CPT/HCPCS: 99212 ==

== ENCOUNTER 2022-12-04 10:22 | Day surgery (SDC) | payer OTHER, SELFPAY ==
[2022-12-04] VITALS (8 sets, daily range): BP systolic 100–120; BP diastolic 53–83; PULSE 69–83; RESP 6–16; TEMP 36.1–36.9; O2SAT 97–100; BMI 26.9
[2022-12-04 10:59] LABS: UPreg QC Valid YES; Urine Pregnancy NEGATIVE (NEGATIVE)
--- NOTE | 2022-12-04 12:42 | HO.ANESPROP2 ---
HPI - Anesthesia Eval Consult details Narrative: 32yo female patient for LEEP [facility] Active Problems Active Problems: All Active Problems (Updated 11/19/22 @ 11:04 by Reno Edwards MD) Gallstone (Acute) Gastritis (Acute) Nicotine use (Acute) Abnormal LFTs (Acute) Well woman exam (Acute) Abnormal uterine bleeding (AUB) (Acute) Screen for STD (sexually transmitted disease) (Acute) H. pylori infection (Acute) HPV test positive (Acute) Myoma (Acute) HPV in female (Acute) ALBERTA II (cervical intraepithelial neoplasia II) (Acute) ALBERTA III (cervical intraepithelial neoplasia grade III) with severe dysplasia (Acute) ? GI viral illness with nausea and vomiting over last few days but resolved Past Medical History Medical History Anxiety Bipolar disorder History of gallstones Family History Family history of problems with anesthesia: No Surgical History Surgical History (Updated 12/02/22 @ 13:46 by Elissa Monson, RN) H/O knee surgery History of hip surgery History of loop electrical excision procedure (LEEP) Hx of shoulder surgery History of Problems with Anesthesia: No Social History Social History Household Members: Family Alcohol intake: current Alcohol intake frequency: does not drink Patient Tobacco Use Status: Current everyday Tobacco user Tobacco use type: Smokeless Tobacco Use of substances other than those prescribed or required for medical reasons: No Substance Use Type: Marijuana Advance Directives: No Advance Directives Information Provided: Yes Current occupational status: employed 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 Allergies Allergy/AdvReac Type Severity Reaction Status Date / Time egg [Egg] Allergy Unknown Anaphylaxis Verified 12/02/22 13:46 morphine Allergy Unknown Nausea and Verified 12/02/22 13:46 Vomiting oxycodone [Percocet] Allergy Unknown Nausea and Verified 12/02/22 13:46 Vomiting acetaminophen [From PERCOCET] AdvReac Unknown NAUSEA & Verified 12/02/22 13:46 VOMITING Exam Exam Date and Time: December 04, 2022 1242 Height,Weight and Vital Signs: Height 5 ft 4 in Weight 71.214 kg Last Vital Signs Temp 98.1 F 12/04/22 10:55 Pulse 78 12/04/22 10:55 Resp 16 12/04/22 10:55 BP 113/74 12/04/22 10:55 Pulse Ox 97 12/04/22 10:55 O2 Del Method 12/04/22 10:55 Pertinent Lab Results Pertinent Lab Results: Laboratory Tests 12/04/22 10:35 Urine Test NEGATIVE Airway Mallampati Class: II TM Dist: >3cm Neck ROM: Full Partial: Lower Loose/Missing/Broken Teeth: Yes (Front top teeth ridged) and No (Denies loose, broken teeth) Heart: RRR Lungs: CTAB Assessment and Plan Assessment Anesthesia Assessment: Anesthesia Plan Discussed and Chart Reviewed Final Anesthetic Review Family History of Problems with Anesthesia: No History of Problems with Anesthesia: No NPO: Yes ASA Class: II Final Preanesthetic Review: No Changes in Pt Med Stat, Meds/Allgs Chart Reviewed, Consent Obtained/Reviewed and Anes Risks/Benef Reviewed Patient Risk: Low Procedure Risk: Low Assessment/Block/Sedation in SS: Assess/Block/Sedation-SS Anesthetic Plan Anesthetic Plan: GA Disposition: Standard PACU
--- NOTE | 2022-12-04 12:46 | MHC.SHP ---
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 No changes have occurred unless specified. Time Spent With Patient Time: Total time managing care of this patient today ____ minutes.
--- NOTE | 2022-12-04 13:45 | P.BOP_ITS ---
Brief Operative Note Date of Service: 12/04/22 Pre-op diagnosis: ALBERTA 2-3 positive endocervical margin on previous LEEP Post-op diagnosis: same Procedure: LEEP CONE with post CONE ECC Surgeon: Reno Edwards MD Anesthesia: GLMA and other (Paracervical block) Was an Journeyman Pressman used for this Procedure?: No Estimated blood loss (mL): 0 Pathology: other (Cervical cone, top-hat, Post cone ECC) Condition: stable Disposition: other (Home)
--- NOTE | 2022-12-04 13:45 | W.PM.OPN ---
Operative Note Operative Note Date of Service: 12/04/22 Narrative: Pre op diagnosis: ALBERTA 2-3 with positive endocervical margins on previous LEEP Operation: Colposcopy, Loop electrical re excision procedure cone, top hat endocervical excision, post cone ECC Postop diagnosis: the same Quantitative blood loss: 50 cc Surgeon: Reno Edwards MD, FACOG Medicaid Eligibility Specialist: None Pathology: Cervical cone, top-hat endo cervical excision, endo cervical curettage Complications: none Anesthesia: GLMA and Para cervical block Procedure: The patient was put in a dorsal lithotomy position, scrubbed and draped in the usual sterile fashion. A speculum was inserted inside the patient's vagina. The cervix is assessed using the colposcope with acetic acid , the lesions were seen, and at least 1 cm of the squamocolumnar junction was observed. 20 x 5 mm size loop was selected based upon the diameter of the lesion. Lugol solution was used to outline the lesions and area of the transformation zone order to be removed 10 cc of xylocaine with epinephrine were injected submucosally into the surface of the cervix (ectocervix) at the 3, 6, 9, and 12 o'clock positions. The electrosurgical generator is set at 40 guerra on blend 1. The loop is carefully passed simultaneously around and under the transformation zone, in order to ensure excising it making sure the lesion is at least 5 mm far from the specimen margins . The loop was allowed to glide through the cervix from one side to the other, allowing the cutting current to divide the tissue. Since previous LEEP pathology showed positive endo cervical margins, additional tissue was excised from this area with a smaller-diameter loop , endo cervical top-hat excision was performed An endo cervical curettage is performed following completion of excision, and hemostasis is obtained with a Ball electrode or regular tip cautery. At the end, Monsel's solution was applied to the cone bed. The patient tolerated the procedure well and, all instruments were taken out of the patient vaginal cavity, and the patient was transferred to the PACU in stable condition.
== END 2022-12-04 17:28 | disposition home or self-care (01) ==
PROVIDERS: PCP Internal Medicine; Visit Provider Obstetrics & Gynecology
PROC: 0UBC7ZZ Excision of Cervix, Via Natural or Artificial Opening (ICD-10-PCS; CPT 57522; principal; 2022-12-04 13:10)
DX: D06.9 Carcinoma in situ of cervix, unspecified (principal); F31.9 Bipolar disorder, unspecified; F41.1 Generalized anxiety disorder; F17.210 Nicotine dependence, cigarettes, uncomplicated; F12.90 Cannabis use, unspecified, uncomplicated; Z88.8 Allergy status to other drugs, medicaments and biological substances
CPT/HCPCS: 57461; 81025; 88305; 88307; J0131; J1100; J2405

== ENCOUNTER → 2022-12-24 14:55 | Outpatient (BNVA) | payer OTHER, SELFPAY | PROVIDERS: Visit Provider Obstetrics & Gynecology | DX: D06.9 Carcinoma in situ of cervix, unspecified (principal); Z98.890 Other specified postprocedural states | CPT/HCPCS: 99212 ==

== ENCOUNTER 2023-03-22 11:13 | Outpatient (REF) | payer OTHER, SELFPAY ==
[2023-03-22 13:17] LABS: MANUAL DIFF FLAG NO
[2023-03-22 13:21] LABS: Basophils Percent Auto 0.7 % (0-2); Eosinophils Absolute Auto 0.2 X10*3/uL (0.0-0.4); Eosinophils Percent Auto 5.2 % (0-4); Hematocrit 33.6 % (37.0-47.0); Hemoglobin 11.6 g/dl (12.0-16.0); Imm Gran Abs Auto 0.01 X10*3/uL (0.00-0.03); Imm Gran Pct Auto 0.2 % (0.0-0.4); Lymphocytes Absolute Auto 1.4 X10*3/uL (1.2-4.9); Mean Corpuscular HGB Conc 34.5 g/dl (31.0-35.0); Mean Corpuscular Hemoglobin 30.9 pg (27.0-33.0); Mean Corpuscular Volume 89.4 fL (80.0-98.0); Mean Platelet Volume 10.8 fL (9.4-12.3); Monocytes Absolute Auto 0.4 X10*3/uL (0.1-1.2); Monocytes Percent Auto 8.3 % (2-11); Neutrophils Absolute Auto 2.4 x10*3/uL (2.0-8.3); Neutrophils Percent Auto 53.6 % (45-73); Platelet Count 284 X10*3/uL (160-400); Red Blood Count 3.76 X10*6/uL (4.20-5.50); White Blood Count 4.4 X10*3/uL (4.8-10.8)
[2023-03-22 13:47] LABS: Alanine Aminotransferase 11 U/L (0-31); Albumin Level 3.8 g/dL (3.5-5.0); Alkaline Phosphatase 47 U/L (39-117); Anion Gap 9 (12-20); Aspartate Amino Transferase 11 U/L (5-31); Bilirubin Total 0.3 mg/dL (0.0-1.0); Blood Urea Nitrogen 15 mg/dL (9-16); C Reactive Protein < 0.10 mg/dL (< or = 0.50); Calcium 8.7 mg/dL (8.4-10.2); Carbon Dioxide 26 mmol/L (22-29); Chloride 108 mmol/L (96-108); Estimated Glomerular Filt Rate > 60; Glucose Random 88 mg/dL (60-115); Potassium 4.4 mmol/L (3.3-5.1); Rheumatoid Factor < 13.0 IU/mL (<15.0); Sodium 139 mmol/L (135-145); Total Protein 6.3 g/dL (6.5-8.0)
[2023-03-22 13:58] LABS: Erythrocyte Sedimentation Rate 9 MM/HR (0-20)
[2023-03-25 00:49] LABS: TS Negative Control Passed; TS Panel A 4; TS Panel B 1; TS Positive Control Passed; TSpotTB Negative (Negative)
[2023-03-26 07:39] LABS: Anti Nuclear Antibody Screen NEGATIVE (NEGATIVE)
== END 2023-03-22 11:14 | disposition home or self-care (01) ==
LOC: HO.10HDL 11:13
PROVIDERS: Visit Provider Internal Medicine
DX: Z02.1 Encounter for pre-employment examination (principal); Z83.49 Family history of other endocrine, nutritional and metabolic diseases
CPT/HCPCS: 36415; 80053; 85025; 85652; 86038; 86140; 86431; 86481

== ENCOUNTER 2023-05-04 10:53 | Outpatient (REF) | payer OTHER, SELFPAY ==
--- NOTE | ~2023-05-04 | XR_ITS ---
EXAMINATION: XR HIP, RIGHT CLINICAL INFORMATION: Right hip pain COMPARISON: Right hip 02/01/2019 TECHNIQUE: AP view of the pelvis and 2 views of the right hip of the right hip. FINDINGS: Degenerative changes in the imaged lower lumbar spine. Rounded pelvic calcifications are likely vascular. Mild degenerative changes in the bilateral sacroiliac joints. Bilateral hip joint spaces are symmetric. Right hip joint space and alignment are preserved. XR/XR hip RT w PEL1V IMPRESSION: Right hip joint space and alignment are preserved. Mild degenerative changes in the bilateral sacroiliac joints. Additional imaging with CT scan or MRI should be considered for better visualization as these modalities are much more sensitive for detection of fracture or other underlying pathology.
== END 2023-05-04 10:54 | disposition home or self-care (01) ==
LOC: HO.HOSX 10:53
PROVIDERS: Visit Provider Physician Assistant
DX: Q65.89 Other specified congenital deformities of hip (principal); M25.551 Pain in right hip
CPT/HCPCS: 73502; 99202

== ENCOUNTER 2023-05-04 13:51 | Outpatient (AMB) | payer OTHER, SELFPAY ==
--- NOTE | 2023-05-04 14:08 | A.OFFVIS_ITS ---
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 She state that her pain is has gotten worse over the years. Patient reports having her hip pop out of place. Pain is more near the groin area and it goes to her lower back. 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 The patient reports she was born with an abnormal hip. She states the pain is chronic and has increased through the years. She claims her hip pops out of place. She states she has to pop the hip back in place by herself daily. She states she has been seen multiple time by the ED to have the hip popped back in place from age [age]- 2016. 2016 was the last time she was seen in the ED to pop the hip in place. She confirms her pain is near the groin area and radiates to her back. She states she was told her socket was to small. She states she has a history of surgeries at [facility] to help correct the hip since she was a child. Patient has a history of cortisone injections in the right hip, which was several years ago. Patient also has a complaint of bilateral knee pain. 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 Reproductive History Menstrual Age of Menarche: 11 Review of Systems Const All systems reviewed & are unremarkable except as noted in HPI and below Physical Exam Const General: cooperative, healthy appearing, comfortable, no acute distress, well developed and alert Orientation/consciousness: patient oriented x3 HEENT Head: Yes normal to inspection, Yes normocephalic and Yes atraumatic Eyes General: appearance normal, both eyes and all related structures Resp Effort & Inspection: normal respiratory effort and able to speak in complete sentences Cardio Rate: regular rate Peripheral pulses: Peripheral pulses 2+ throughout GI Palpation (GI): Soft to palpation Skin Lesions: no lesions Rashes: no rashes Neuro General: patient oriented x3 Extrem Other: Right hip: Normal to inspection. No ecchymosis, erythema, or edema. Full hip ROM in all planes. No tenderness to palpation over the greater trochanteric bursa. Reported pain with resisted hip flexion, knee extension, abduction, and abduction. Able to perform straight leg raise. NVI. Assessment & Plan Assessment & Plan (1) Congenital dysplasia of right hip: Code(s): Q65.89 - Other specified congenital deformities of hip Plan Ms. Spaulding is a 33-year-old female who presents in the office today, as a new patient, for an evaluation of right hip pain. The patient reports she was born with an abnormal hip. She states the pain is chronic and has increased through the years. She claims her hip pops out of place. She states she has to pop the hip back in place by herself daily. She states she has been seen multiple time by the ED to have the hip popped back in place from age 2000- 2016. 2016 was the last time she was seen in the ED to pop the hip in place. She confirms her pain is near the groin area and radiates to her back. She states she was told her socket was to small. She states she has a history of surgeries at [facility] to help correct the hip since she was a child. Patient has a history of cortisone injections in the right hip, which was several years ago. Patient also has a complaint of bilateral knee pain. Dr. Quiñonez was available to speak with me about the patient today and a collaborative treatment plan was made. The patient will be referred for an MRI for further evaluation or treatment. Follow up will be after the MRI is obtained, or sooner if needed. X-rays of the right hip which were obtained while in the office today and were reviewed by me, Tammi Cevallos PA-C, revealed no evidence of acute fracture or dislocation. Orders: Orders XR hip RT w [id number] Today M25.559 - Pain in unspecified hip MR hip RT wo con Today Q65.89 - Other specified congenital deformities of hip Patient Instructions: Scribed for Tammi Cevallos PA-C by Katey Anderson medical claims examiner, on 05/04/2023 at 1:54 pm, EST. Your attestation Coding Level of Care Code New Pt Level 4 (85904) Diagnoses Congenital dysplasia of right hip Q65.89
== END 2023-05-04 14:59 | disposition home or self-care (01) ==
PROVIDERS: Visit Provider Physician Assistant
DX: Q65.89 Other specified congenital deformities of hip (principal)
CPT/HCPCS: 99204

== ENCOUNTER 2023-06-22 18:38 | Outpatient (REF) | payer OTHER, SELFPAY ==
--- NOTE | ~2023-06-22 | MR_ITS ---
EXAMINATION: MR HIP WITHOUT CONTRAST, RIGHT CLINICAL INFORMATION: Right hip dislocation. Pain worsening with activity. COMPARISON: Most recent right hip radiographs dated 05/04/2023. TECHNIQUE: MRI of the right hip was obtained using routine sequences on a high-field strength magnet. FINDINGS: ACETABULAR LABRUM: Linear fluid signal within the undersurface of the anterosuperior labrum (sagittal image 07/02), consistent with a nondisplaced undersurface tear. Additional nondisplaced undersurface tear of the lateral and posterosuperior labrum. Small paralabral cyst adjacent to the lateral labrum measuring up to 1.2 cm in greatest dimension. ARTICULAR CARTILAGE/BONE: Intact articular cartilage. No stress reaction, fracture, or avascular necrosis. No concerning lytic or blastic osseous lesion. The acetabular depth is within normal limits. MUSCLES/TENDONS: Mildly increased T2 signal adjacent to the distal gluteus medius tendon, consistent with mild tendinosis. No measurable tendon tear. JOINT FLUID/BURSA: Within normal limits. INTRAPELVIC STRUCTURES: Unremarkable. MR/MR hip RT wo con IMPRESSION: 1. Nondisplaced undersurface tear of the anterosuperior labrum. Additional nondisplaced undersurface tear of the lateral and posterosuperior labrum. Small paralabral cyst adjacent to the lateral labrum measuring up to 1.2 cm. 2. No stress reaction, fracture, or avascular necrosis. 3. Mild distal gluteus medius tendinosis.
== END 2023-06-22 18:39 | disposition home or self-care (01) ==
LOC: HO.MRI 18:38
PROVIDERS: PCP Internal Medicine; Visit Provider Physician Assistant
DX: Q65.89 Other specified congenital deformities of hip (principal)
CPT/HCPCS: 73721

== ENCOUNTER 2023-07-21 14:37 | Outpatient (REF) | payer OTHER, SELFPAY ==
[2023-07-21 16:58] LABS: Hematocrit 38.6 % (37.0-47.0); Hemoglobin 13.4 g/dl (12.0-16.0); Mean Corpuscular HGB Conc 34.7 g/dl (31.0-35.0); Mean Corpuscular Volume 86.4 fL (80.0-98.0); Mean Platelet Volume 10.8 fL (9.4-12.3); Platelet Count 273 X10*3/uL (160-400); Red Blood Count 4.47 X10*6/uL (4.20-5.50); Red Cell Distribution Width 13.5 % (11.0-16.0); White Blood Count 5.7 X10*3/uL (4.8-10.8)
[2023-07-21 17:53] LABS: HCG Quantitative < 2 mIU/mL; TSH reflex Free T4 0.83 uIU/mL (0.32-4.0)
[2023-07-21 18:27] LABS: CT PCR NOT DETECTED (Not Detect.); NG PCR NOT DETECTED (Not Detect.)
[2023-07-23 19:59] LABS: HPV mRNA E6/E7 rflx Not Detected (Not Detected)
== END 2023-07-21 14:38 | disposition home or self-care (01) ==
LOC: HO.LNP 14:37
PROVIDERS: Visit Provider Obstetrics & Gynecology
DX: Z12.4 Encounter for screening for malignant neoplasm of cervix (principal); Z11.51 Encounter for screening for human papillomavirus (HPV); N93.9 Abnormal uterine and vaginal bleeding, unspecified; B97.7 Papillomavirus as the cause of diseases classified elsewhere; D06.9 Carcinoma in situ of cervix, unspecified
CPT/HCPCS: 0353U; 84443; 84702; 85027; 87624; 88142; 99212

== ENCOUNTER 2023-07-21 14:37 | Outpatient (AMB) | payer OTHER, SELFPAY ==
[2023-07-21 15:13] VITALS: BP 94/60; BMI 25.6
--- NOTE | 2023-07-21 15:13 | A.OFFVIS_ITS ---
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 Last co testing was in 08/01 which was negative/HPV positive, colpo biopsy showed ALBERTA 2, the patient underwent LEEP cone with post cone ECC on 11/02 which came back as ALBERTA 2-3 with positive margin , on 12/03 re-excision was done and pathology showed no residual dysplasia The patient is complaining of irregular menstrual cycles associated with pelvic cramping and passage of blood clots in addition to pelvic pain over the last few months. No associated GI or symptoms. FOR[facility]LY [facility], LATER [facility] Medical History (Updated 07/21/23 @ 15:52 by Reno Edwards MD) Migraine with aura History of gallstones Anxiety Bipolar disorder Surgical History (Updated 07/21/23 @ 15:26 by Reno Edwards MD) History of loop electrical excision procedure (LEEP) Hx of shoulder surgery H/O knee surgery History of hip surgery Family History Maternal Grandfather Colon cancer Maternal Grandmother Ovarian cancer Social History Household Members: Family Alcohol intake: current Alcohol intake frequency: does not drink Patient Tobacco Use Status: Current everyday Tobacco user Tobacco use type: Smokeless Tobacco Substance Use Type: Marijuana Current occupational status: employed 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 [employer] Female Reproductive History Menstrual Age of Menarche: 11 Duration of menses: 3-5 days Date of last menstrual period: 07/19/23 control method: none Date of last pap smear: 07/14/22 (+HPV) History of abnormal pap smear: Yes (10/01 colpo ALBERTA 2 11/02 Leep ALBERTA 2-3) Review of Systems Const All systems reviewed & are unremarkable except as noted in HPI and below Card Reports as per HPI Resp Reports as per HPI GI Reports as per HPI and Reports no additional complaints Reports as per HPI Physical Exam Vital Signs: Last Vital Signs BP 94/60 07/21/23 15:13 BMI result Body Mass Index 25.6 Const General: cooperative, healthy appearing and comfortable Chest Chest palpation & inspection: normal inspection of the chest and normal palpation of entire chest wall Breast/axilla inspection: normal inspection of the breasts and normal inspection of the axillae Breast/axilla palpation: normal palpation of the breasts, normal palpation of the axillae and no axillary lymphadenopathy Resp Effort & Inspection: normal respiratory effort Auscultation: clear to auscultation bilaterally Percussion: percussion normal Cardio Palpation: normal PMI Rate: regular rate Rhythm: regular rhythm Heart sounds: no murmurs and no rubs Peripheral pulses: Peripheral pulses 2+ throughout GI Inspection: Yes normal to inspection Palpation (GI): Soft to palpation, nontender, no guarding, not rigid and No hepatosplenomegaly present Percussion: Yes normal to percussion Auscultation: normal bowel sounds Rectal Exam - Female: deferred General: Yes bladder normal to palpation External Female Exam: No lesion Speculum Exam - Vagina: normal appearance of the vagina, normal palpation, normal vaginal discharge and not erythematous Speculum Exam - Cervix: normal appearance of the cervix and normal palpation Bimanual exam- vagina & uterus: normal bimanual exam, normal palpation, uterine size normal, bladder normal to palpation, consistency normal and normal palpation Bimanual Exam- Adnexa, other: normal adnexae, no masses and no tenderness Assessment & Plan Assessment & Plan (1) 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 Counseled the patient about the recommended dietary allowance of 1000 mg of Calcium & 600 IU of vitamin D. The patient was instructed to perform monthly self-breast exams and to schedule an annual exam in a year; All questions answered and the patient verbalized understanding. Instructed the patient to schedule annual exam in a year (2) Abnormal uterine bleeding (AUB): Code(s): N93.9 - Abnormal uterine and vaginal bleeding, unspecified Plan: Co testing done, GC and chlamydia taken CBC, TSH, HCG, and pelvic ultrasound ordered. Discussed with the patient the different causes of abnormal bleeding including thyroid disorders, uterine and ovarian pathology, endometrial hyperplasia, carcinoma and other potential causes. Discussed with the patient the work up including CBC (to r/o anemia), TSH, pelvic Ultrasound, endometrial biopsy to r/o endometrial pathology. All questions answered and the patient verbalized understanding. Instructed the patient to schedule an appointment for an endometrial biopsy in 2 weeks. (3) Pelvic pain: Code(s): R10.2 - Pelvic and perineal pain Plan: Urinalysis ordered. GC and chlamydia taken and pelvic ultrasound ordered. Discussed with the patient the differential diagnosis of pelvic pain including but not limited to adnexal, uterine masses, pelvic infections (PID), GI the (Irritable bowel syndrome, diverticulitis, others), musculoskeletal, myofascial pain abdominal wall , adhesions, endometriosis, psychological and others causes. Will check results and treat accordingly. All questions answered, the patient verbalized understanding. 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
== END 2023-07-21 15:59 | disposition home or self-care (01) ==
PROVIDERS: PCP Internal Medicine; Visit Provider Obstetrics & Gynecology
DX: D06.9 Carcinoma in situ of cervix, unspecified (principal); N93.9 Abnormal uterine and vaginal bleeding, unspecified; R10.2 Pelvic and perineal pain
CPT/HCPCS: 99213

== ENCOUNTER 2023-07-28 13:02 | Outpatient (REF) | payer OTHER, SELFPAY ==
--- NOTE | ~2023-07-28 | US_ITS ---
EXAMINATION: US PELVIS CLINICAL INFORMATION: Abnormal uterine bleeding; the last menstrual period was on 07/20/2023. COMPARISON: Pelvic ultrasound dated 08/19/2022. TECHNIQUE: Ultrasound of the pelvis is performed using both transabdominal and transvaginal transducers along with Doppler. Transvaginal imaging is performed due to inadequate visualization transabdominally. FINDINGS: Uterus: The uterus is anteverted and anteflexed. The uterus measures 7.6 x 3.9 x 4.9 cm. The double wall endometrial thickness is 0.5 mm. The uterus is smooth in contour and has normal myometrial echogenicity. No visible fibroid. Adnexa: Both ovaries are visualized. There is normal color flow to the adnexa. There is no ovarian torsion. There is no pelvic ascites or fluid collection. Right ovary measures 2.3 x 2.3 x 2.7 cm, volume 7.6 mL. The left ovary contains a 2.0 cm benign, simple dominant follicle. This requires no imaging follow-up. Left ovary measures 2.3 x 1.9 x 2.0 cm, volume 4.4 mL. The right ovary contains a 1.1 cm benign, simple dominant follicle. This requires no imaging follow-up. US/US pelvic and transvaginal IMPRESSION: Unremarkable examination.
[2023-07-28 09:22] LABS: Appearance Urine Clear; Color Urine Dark Yellow; Glucose Urine UA Negative (Negative); Leukocyte Esterase Urine Negative (Negative); Nitrite Urine Negative (Negative); PH 5.5 (5.0-9.0); Specific Gravity - Urine 1.025 (1.005-1.025); Urine Blood Negative (Negative); Urine Ketones Negative (Negative); Urine Protein Negative (Neg-Trace)
[2023-07-28 14:30] LABS: CT PCR NOT DETECTED (Not Detect.); NG PCR NOT DETECTED (Not Detect.)
== END 2023-07-28 13:03 | disposition home or self-care (01) ==
LOC: HO.HMGCX 13:02
PROVIDERS: PCP Internal Medicine; Visit Provider Obstetrics & Gynecology
DX: R10.2 Pelvic and perineal pain (principal); N93.9 Abnormal uterine and vaginal bleeding, unspecified
CPT/HCPCS: 0353U; 76830; 76856; 81003

== ENCOUNTER 2023-10-01 16:28 | Emergency (ER) | payer OTHER, SELFPAY ==
--- NOTE | ~2023-10-01 | XR_ITS ---
EXAMINATION: XR CHEST CLINICAL INFORMATION: Chest pain COMPARISON: Chest x-ray August 06, 2020 TECHNIQUE: 2 views of the chest were obtained. FINDINGS: No significant abnormality is noted involving the heart, lungs, mediastinum, bony thorax or soft tissues. XR/XR chest 2V IMPRESSION: Unremarkable examination.
--- NOTE | 2023-10-01 16:30 | ECG_ITS ---
Test Reason : CHEST PAIN /ARM PAIN Blood Pressure : / mmHG Vent. Rate : 099 BPM Atrial Rate : 099 BPM P-R Int : 126 ms QRS Dur : 070 ms QT Int : 334 ms P-R-T Axes : 072 070 062 degrees QTc Int : 428 ms Normal sinus rhythm Normal ECG When compared with ECG of 20-APR-2022 07:45, No significant change was found Referred By: Estrella Couch Electronically Signed By:KT FRANCO MD
[2023-10-01 16:46] VITALS: BP 123/87; PULSE 98; RESP 18; TEMP 36.8; O2SAT 98; BMI 26.0
--- NOTE | 2023-10-01 16:47 | ED.GENADULT ---
HPI - General Adult General Chief complaint: Chest Pain Stated complaint: Tachycardia/Chest pain/Sent from Time Seen by Provider: 10/01/23 19:52 History of Present Illness HPI narrative: 33 y/o F patient; PMH GI issues on Prilosec; presents from home with report of 2 days of dry non-productive cough, central chest pain/heaviness that is positional and pleuritic, and left arm intermittent numbness. She states she initially went to Urgent Care approx a month ago and was diagnosed with pneumonia which was treated with steroids and antibiotics. She then returned to the Urgent Care today due to similar symptoms and was referred to the ED for an EKG and CXR. The patient reports + sick contacts at home. Reports she quit smoking 5 days ago. Otherwise denies: fever or chills, nausea/vomiting, abdominal pain, diarrhea. Related Data Home Medications Medication Instructions Recorded Confirmed cholecalciferol (vitamin D3) 125 125 mcg PO DAILY 07/21/23 mcg (5,000 unit) capsule divalproex 250 mg tablet,extended 250 mg PO DAILY 07/21/23 release 24 hr ferrous sulfate 325 mg (65 mg 325 mg PO DAILY 07/21/23 iron) tablet sumatriptan succinate 25 mg tablet 25 mg PO Q2-4H PRN 07/21/23 (Imitrex) Previous Rx's Medication Instructions Recorded omeprazole 20 mg capsule,delayed 20 mg PO DAILY #90 caps 08/16/23 release Allergies Allergy/AdvReac Type Severity Reaction Status Date / Time egg [Egg] Allergy Unknown Anaphylaxis Verified 07/21/23 15:14 morphine Allergy Unknown Nausea and Verified 07/21/23 15:14 Vomiting oxycodone [Percocet] Allergy Unknown Nausea and Verified 07/21/23 15:14 Vomiting acetaminophen [From PERCOCET] AdvReac Unknown NAUSEA & Verified 07/21/23 15:14 VOMITING Review of Systems Review of Systems: Yes all other systems are reviewed and are negative PMFSH Past Medical History Attestation statement: The following information was validated with the patient. Source: old records reviewed Medical History Migraine with aura History of gallstones Anxiety Bipolar disorder Surgical History History of loop electrical excision procedure (LEEP) Hx of shoulder surgery H/O knee surgery History of hip surgery Family History Family History Maternal Grandfather Colon cancer Maternal Grandmother Ovarian cancer Social History Social History Household Members: Family Alcohol intake: former Patient Tobacco Use Status: Current everyday Tobacco user Tobacco use type: Smokeless Tobacco Smoked in Last 30 Days: No Use of substances other than those prescribed or required for medical reasons: No Substance Use Type: Marijuana Advance Directives: No Advance Directives Information Provided: No Patient : No Current occupational status: employed 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 ED Vital Signs: Vital Signs - 24 hr 10/01/23 16:46 10/01/23 20:03 Temperature 98.3 F 98.1 F Pulse Rate 98 79 Respiratory Rate 18 16 Blood Pressure 123/87 135/90 H Pulse Oximetry 98 99 Oxygen Delivery Method Room Air Room Air BMI result Body Mass Index 26.0 Patient is afebrile and hemodynamically stable Const General: cooperative HENMT Head: Yes atraumatic Eyes General: appearance normal, both eyes and all related structures Pupils: Equal, round and reactive pupils present EOM: EOMs intact bilaterally Neck Neck: Yes supple and No tender Chest Other: Pain to palpation of left-sided chest wall Resp Effort & Inspection: normal respiratory effort, able to speak in complete sentences, no audible wheezes and no cough Auscultation: clear to auscultation bilaterally Cardio Rate: regular rate Rhythm: regular rhythm Peripheral pulses: Peripheral pulses 2+ throughout GI Inspection: Yes normal to inspection and No distended Palpation (GI): Soft to palpation, not firm, nontender, no guarding and not rigid Neuro Cranial nerves: Yes Equal, round and reactive pupils present Course Course Course Narrative: RME performed by Estrella Couch PA-C. Patient is a 33 year old assigned female at presenting to the emergency department with chest pain and rapid heart rate. Patient was seen at an urgent care who called with concerns for a PE. Labs, imaging, and swabs ordered. Patient placed back in the waiting room pending room availability and results. Reevaluation(s) Reevaluation #1: Patient is afebrile and hemodynamically stable. Reviewed triage work up - added CXR. COVID/Flu/RSV negative. Beta hcg not previously ordered with straight stick, patient does not have IV. Discussed with patient who reports female sexual partners and denies chance of . She declines beta hcg testing. EKG reassuring. D-Dimer borderline (with negative <243 and patient 342). Low suspicion for PE given lack of hypoxia, reproducible nature of pain, and lack of tachycardia. Patient low risk for PE by PERC negative (no hormone use, no prior PE/DVT, no recent surgery/trauma, no hemoptysis, no unilateral leg swelling, SPO2 >95% on RA, HR <100BPM, age <50) and well's negative (no signs/symptoms of DVT, PE is not most likely diagnosis, HR <100, no immobilization or surgery recently, no prior PE/DVT, no hemoptysis, no malignancy). By these criteria d-dimer was not recommended to be ordered in this patient who is low risk as this test has high sensitivity, but low specificity. Low suspicion for ACS, possible post-viral costocondritis given reproducible nature of pain. Provided Toradol 15mg IM for pain control. Reevaluation #2: CXR unremarkable. Plan: Discharge to home with PCP follow up Return precautions given Medications Administered Discontinued Medications Generic Name Dose Route Start Last Admin Trade Name Freq PRN Reason Stop Dose Admin Ketorolac Tromethamine 15 mg 10/01/23 20:36 10/01/23 20:41 Ketorolac Tromethamine 15 Mg/Ml Vial IM 10/01/23 20:37 15 mg ONCE ONE Administration Medical Decision Making Lab Data 10/01/23 17:17 10/01/23 17:17 Labs: Lab Results 10/01/23 10/01/23 10/01/23 Range/Units 17:14 17:17 18:43 WBC 5.4 (4.8-10.8) X10*3/uL RBC 4.60 (4.20-5.50) X10*6/uL Hgb 14.2 (12.0-16.0) g/dl Hct 39.6 (37.0-47.0) % MCV 86.1 (80.0-98.0) fL MCH 30.9 (27.0-33.0) pg MCHC 35.9 H (31.0-35.0) g/dl RDW 13.1 (11.0-16.0) % Plt Count 271 (160-400) X10*3/uL MPV 10.6 (9.4-12.3) fL Immature Gran % (Auto) 0.2 (0.0-0.4) % Neut % (Auto) 49.1 (45-73) % Lymph % (Auto) 34.4 (20-40) % [place] % (Auto) 11.0 (2-11) % Eos % (Auto) 4.6 H (0-4) % Baso % (Auto) 0.7 (0-2) % Lymph # (Auto) 1.9 (1.2-4.9) X10*3/uL [place] # (Auto) 0.6 (0.1-1.2) X10*3/uL Eos # (Auto) 0.3 (0.0-0.4) X10*3/uL Baso # (Auto) 0.0 (0.0-0.2) X10*3/uL Abs Immat Gran (auto) 0.01 (0.00-0.03) X10*3/uL Absolute Neuts (auto) 2.7 (2.0-8.3) x10*3/uL Absolute Nucleated RBC 0.000 (0.0-0.012) X10*3/uL Nucleated RBC % (auto) 0.0 (0.0-0.2) /100WBC PT 11.5 (11.1-13.3) SEC INR 0.9 (0.9-1.1) APTT 31.5 (26.0-36.4) SEC D-Dimer High Sensitivty 342 NG/ML Sodium 139 (135-145) mmol/L Potassium 3.8 (3.3-5.1) mmol/L Chloride 108 (96-108) mmol/L Carbon Dioxide 24 (22-29) mmol/L Anion Gap 11 L (12-20) BUN 18 H (9-16) mg/dL Creatinine 0.83 (0.5-1.4) mg/dL Estim Creat Clear Calc 87.6 Estimated GFR > 60 Random Glucose 93 (60-115) mg/dL Calcium 9.1 (8.4-10.2) mg/dL Magnesium 2.3 (1.6-2.6) mg/dL Total Bilirubin 0.4 (0.0-1.0) mg/dL AST 28 (5-31) U/L ALT 69 H (0-31) U/L Alkaline Phosphatase 49 (39-117) U/L Troponin I High Sens < 2.7 (<3.5-17.0) ng/L Total Protein 7.1 (6.5-8.0) g/dL Albumin 4.1 (3.5-5.0) g/dL Urine Color Yellow Urine Appearance Clear Urine pH 7.0 (5.0-9.0) Ur Specific [place] 1.020 (1.005-1.025) Urine Protein Negative (Neg-Trace) mg/dL Urine Glucose (UA) Negative (Negative) mg/dL Urine Ketones Negative (Negative) mg/dL Urine Blood Negative (Negative) Urine Nitrite Negative (Negative) Ur Leukocyte Esterase Trace H (Negative) Urine RBC 0-2 (0-2) /HPF Urine WBC 0-5 (0-5) /HPF Ur Squamous Epith Cells 0-2 (0-2) /HPF Urine Bacteria None Seen (None Seen) Hyaline Casts 0-2 (0-2) /LPF Influenza Type A (PCR) NEGATIVE (Negative) Influenza Type B (PCR) NEGATIVE (Negative) RSV RNA Qual (PCR) NEGATIVE (Negative) SARS-CoV-2 RNA (RT-PCR) NEGATIVE (Negative) Discharge Plan Discharge Clinical Impression: Chest pain Patient Disposition: Home, Self-Care Instructions: Chest Pain (DC) Additional Instructions: As we discussed, you were seen today for chest pain. Your EKG, CXR, and labs were reassuring. Your symptoms are likely due to inflammation along the lining of your lung called pleurisy. You can use Ibuprofen 400 - 600mg every 6 hours as needed, but continue to take your GI medication as well. Return to the ED for any worsening pain, passing out, or difficulty breathing. Prescriptions: No Action omeprazole 20 mg capsule,delayed release(DR/EC) 20 mg PO DAILY Qty: 90 2RF ferrous sulfate 325 mg (65 mg iron) tablet 325 mg PO DAILY cholecalciferol (vitamin D3) 125 mcg (5,000 unit) capsule 125 mcg PO DAILY divalproex 250 mg tablet extended release 24 hr 250 mg PO DAILY sumatriptan succinate [Imitrex] 25 mg tablet 25 mg PO Q2-4H PRN Rx Instructions: do not exceed 8 doses per 24 hrs
[2023-10-01 17:23] LABS: MANUAL DIFF FLAG NO
[2023-10-01 17:32] LABS: INTERNATIONAL NORM RATIO 0.9 (0.9-1.1); Prothrombin Time 11.5 SEC (11.1-13.3)
[2023-10-01 17:34] LABS: D Dimer High Sensitivity 342 NG/ML
[2023-10-01 17:35] LABS: Partial Thromboplastin Time 31.5 SEC (26.0-36.4)
--- NOTE | 2023-10-01 17:35 | MHC.EDTECH ---
Patient ekg taken and was read by Provider ,blood drawn ,rsv/covid swab collected and sent to lab .
[2023-10-01 17:40] LABS: Alanine Aminotransferase 69 U/L (0-31); Albumin Level 4.1 g/dL (3.5-5.0); Alkaline Phosphatase 49 U/L (39-117); Anion Gap 11 (12-20); Aspartate Amino Transferase 28 U/L (5-31); Bilirubin Total 0.4 mg/dL (0.0-1.0); Blood Urea Nitrogen 18 mg/dL (9-16); Calcium 9.1 mg/dL (8.4-10.2); Carbon Dioxide 24 mmol/L (22-29); Chloride 108 mmol/L (96-108); Creatinine Clr Calc Pharmacy 87.6; Estimated Glomerular Filt Rate > 60; Glucose Random 93 mg/dL (60-115); Magnesium 2.3 mg/dL (1.6-2.6); Potassium 3.8 mmol/L (3.3-5.1); Sodium 139 mmol/L (135-145); Total Protein 7.1 g/dL (6.5-8.0)
[2023-10-01 17:49] LABS: Troponin-I High Sensitivity < 2.7 ng/L (<3.5-17.0)
[2023-10-01 17:56] LABS: Basophils Percent Auto 0.7 % (0-2); Eosinophils Absolute Auto 0.3 X10*3/uL (0.0-0.4); Eosinophils Percent Auto 4.6 % (0-4); Hematocrit 39.6 % (37.0-47.0); Hemoglobin 14.2 g/dl (12.0-16.0); Imm Gran Abs Auto 0.01 X10*3/uL (0.00-0.03); Imm Gran Pct Auto 0.2 % (0.0-0.4); Lymphocytes Absolute Auto 1.9 X10*3/uL (1.2-4.9); Lymphocytes Percent Auto 34.4 % (20-40); Mean Corpuscular HGB Conc 35.9 g/dl (31.0-35.0); Mean Corpuscular Hemoglobin 30.9 pg (27.0-33.0); Mean Corpuscular Volume 86.1 fL (80.0-98.0); Mean Platelet Volume 10.6 fL (9.4-12.3); Monocytes Absolute Auto 0.6 X10*3/uL (0.1-1.2); Neutrophils Absolute Auto 2.7 x10*3/uL (2.0-8.3); Neutrophils Percent Auto 49.1 % (45-73); Platelet Count 271 X10*3/uL (160-400); Red Cell Distribution Width 13.1 % (11.0-16.0); White Blood Count 5.4 X10*3/uL (4.8-10.8)
[2023-10-01 18:15] LABS: Influenza A PCR NEGATIVE (Negative); Influenza B PCR NEGATIVE (Negative); Resp Syncy Virus RNA Qual PCR NEGATIVE (Negative); SARS COV2 PCR INHOUSE NEGATIVE (Negative)
[2023-10-01 18:51] LABS: Appearance Urine Clear; Color Urine Yellow; Glucose Urine UA Negative (Negative); Leukocyte Esterase Urine Trace (Negative); Nitrite Urine Negative (Negative); UMIC TRIGGER UACC YES; Urine Blood Negative (Negative); Urine Ketones Negative (Negative); Urine Protein Negative (Neg-Trace)
[2023-10-01 18:57] LABS: Bacteria Urine None Seen (None Seen); Hyaline Casts Urine 0-2 /LPF (0-2); RBC Urine 0-2 /HPF (0-2); Squamous Epithelial Cell Urine 0-2 /HPF (0-2); WBC Urine 0-5 /HPF (0-5)
[2023-10-01 20:03] VITALS: BP 135/90; PULSE 79; RESP 16; TEMP 36.7; O2SAT 99
--- NOTE | 2023-10-01 20:11 | PC.NURSE ---
pt from home reporting onset of left sided chest pain since last night that intermittently radiates into the left upper extremity. pt reports pain worsens with cough. pt denies being around any sick people and denies recent travel. pt denies n/v/d. pt normal sinus on tele [id number].
[2023-10-01] MEDS: Ketorolac Tromethamine 15 MG/ML VIAL IM (20:41)
[2023-10-01 21:17] VITALS: BP 107/71; PULSE 84; RESP 16; TEMP 36.9; O2SAT 98
== END 2023-10-01 21:19 | disposition home or self-care (01) ==
PROVIDERS: Physician Assistant Medical; Emergency Provider Emergency Medicine; PCP Internal Medicine
DX: R07.9 Chest pain, unspecified (principal); Z20.822 Contact with and (suspected) exposure to COVID-19; Z20.828 Contact with and (suspected) exposure to other viral communicable diseases; R05.9 Cough, unspecified; F17.210 Nicotine dependence, cigarettes, uncomplicated; Z79.899 Other long term (current) drug therapy
CPT/HCPCS: 0241U; 71046; 80053; 81001; 83735; 84484; 85025; 85379; 85610; 85730; 93005; 96372; 99284; 99285; J1885

== ENCOUNTER → 2023-10-01 16:30 | Outpatient (BNV) | payer OTHER, SELFPAY | PROVIDERS: Emergency Provider Emergency Medicine; PCP Internal Medicine; Visit Provider Internal Medicine Cardiovascular Disease | DX: R07.9 Chest pain, unspecified (principal) | CPT/HCPCS: 93010 ==

== ENCOUNTER 2023-10-19 12:07 | Outpatient (AMB) | payer OTHER, SELFPAY ==
[2023-10-19 12:10] VITALS: BP 92/60; BMI 25.8
--- NOTE | 2023-10-19 12:10 | A.OFFVIS_ITS ---
Intake Vital Signs 10/19/23 12:10 Height 5 ft 3 in Weight 145 lb 8.081 oz BMI 25.8 BP 92/60 Intake Visit Reasons: US follow up Allergies egg [Egg] Allergy (Unknown, Verified 07/21/23 15:14) Anaphylaxis morphine Allergy (Unknown, Verified 07/21/23 15:14) Nausea and Vomiting oxycodone [Percocet] Allergy (Unknown, Verified 07/21/23 15:14) Nausea and Vomiting acetaminophen [From PERCOCET] Adverse Reaction (Unknown, Verified 07/21/23 15:14) NAUSEA & VOMITING HPI HPI Comments History of Present Illness Details The patient is presenting for follow-up to discuss the results of her abnormal uterine bleeding workup and options of treatment. The following workup was done.: H&H= 14.2/39.6 TSH, hCG, GC and chlamydia were negative. Co testing was done was negative. Pelvic ultrasound was unremarkable [facility] Medical History Migraine with aura History of gallstones Anxiety Bipolar disorder Surgical History History of loop electrical excision procedure (LEEP) Hx of shoulder surgery H/O knee surgery History of hip surgery Family History Maternal Grandfather Colon cancer Maternal Grandmother Ovarian cancer Social History Household Members: Family Alcohol intake: former Patient Tobacco Use Status: Current everyday Tobacco user Tobacco use type: Smokeless Tobacco Substance Use Type: Marijuana Current occupational status: employed 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 Reproductive History Menstrual Age of Menarche: 11 Review of Systems Const All systems reviewed & are unremarkable except as noted in HPI and below Reports as per HPI and Reports no additional complaints GI Reports no additional complaints Reports no additional complaints Physical Exam Vital Signs: Last Vital Signs BP 92/60 10/19/23 12:10 BMI result Body Mass Index 25.8 Assessment & Plan Assessment & Plan (1) Abnormal uterine bleeding (AUB): Code(s): N93.9 - Abnormal uterine and vaginal bleeding, unspecified Plan: Discussed with the patient the results of the work up done and options of treatment including Lysteda, BCP's, Mirena IUD, endometrial ablation and hysterectomy. All pros, cons, risks and benefits if each option was discussed with the patient and the patient decided to go ahead with Lysteda , so a more detailed discussion re: Lysteda including mechanism of action, benefits, risks including but not limited to thrombosis and strokes, Instructions were given on how to use, 2 tablets p.o. 3 times a day day 1 up to 3-5 days of menses and to schedule a 3 months follow-up appointment. The patient verbalized understanding and agreed with the plan. Medications: New tranexamic acid Start 1st day of menses and take it up to 3-5 days of menses. 1,300 mg (2 x 650 mg) PO TID 30 tabs 2RF 5 days Coding Level of Care Code Est Pt Level 3 (80337) Diagnoses Abnormal uterine bleeding (AUB) N93.9
== END 2023-10-19 12:30 | disposition home or self-care (01) ==
LOC: HO.HWS 12:07
PROVIDERS: PCP Internal Medicine; Visit Provider Obstetrics & Gynecology
DX: N93.9 Abnormal uterine and vaginal bleeding, unspecified (principal)
CPT/HCPCS: 99213

== ENCOUNTER → 2023-10-19 12:07 | Outpatient (BNVA) | payer OTHER, SELFPAY | PROVIDERS: PCP Internal Medicine; Visit Provider Obstetrics & Gynecology | DX: N93.9 Abnormal uterine and vaginal bleeding, unspecified (principal) | CPT/HCPCS: 99212 ==

== ENCOUNTER 2023-12-01 15:40 | Outpatient (AMB) | payer OTHER, SELFPAY ==
[2023-12-01 15:43] VITALS: BP 100/60; BMI 25.8
--- NOTE | 2023-12-01 15:43 | MHC.OFFVIS ---
Intake Vital Signs 12/01/23 15:43 Height 5 ft 3 in Weight 145 lb 8.081 oz BMI 25.8 BP 100/60 Intake Visit Reasons: Pelvic pain Television Announcer Required: No Information Interpreted: non-clinical & clinical Television Inspector: Television Inspector Present (Gladis TARIQ) Accompanied by: Significant Other Allergies egg [Egg] Allergy (Unknown, Verified 12/01/23 15:51) Anaphylaxis morphine Allergy (Unknown, Verified 12/01/23 15:51) Nausea and Vomiting oxycodone [Percocet] Allergy (Unknown, Verified 12/01/23 15:51) Nausea and Vomiting acetaminophen [From PERCOCET] Adverse Reaction (Unknown, Verified 12/01/23 15:51) NAUSEA & VOMITING Is last menstrual period known: Yes Last menstrual period: 11/09/23 HPI HPI Comments History of Present Illness Details The patient is presenting with bilateral lower pelvic pain started few ago. It's intermittent in nature lasting few seconds and constant in nature. it is not associated with diarrhea, nausea, no dysuria, frequency incontinence, no feverishness, no vaginal bleeding or discharge. 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 Female Reproductive History Menstrual Age of Menarche: 11 Date of last menstrual period: 11/09/23 Review of Systems Const All systems reviewed & are unremarkable except as noted in HPI and below Physical Exam Vital Signs: Last Vital Signs BP 100/60 12/01/23 15:43 BMI result Body Mass Index 25.8 General: Yes no CVA tenderness External Female Exam: normal external appearance and normal appearance of the urethra Speculum Exam - Vagina: normal appearance of the vagina, normal palpation, no lesions and no masses Speculum Exam - Cervix: normal appearance of the cervix, normal palpation, no lesions, no masses and nontender Bimanual exam- vagina & uterus: normal bimanual exam, normal palpation, uterine size normal, normal palpation, uterine shape normal, No Cervical tenderness present and non-tender Bimanual Exam- Adnexa, other: normal adnexae Back/Spine/Pelvis Back: no CVA tenderness Results AMB Test Urine AMB Test Urine Negative Last Edit by Gladis Estrella, CRIMPING MACHINE OPERATOR FOR [employer] on 12/01/23 16:01 AMB Urinalysis Dipstick UR Leukocytes Trace Last Edit by Gladis Estrella, CRIMPING MACHINE OPERATOR [employer] on 12/01/23 16:02 UR Nitrite Negative Last Edit by Gladis Estrella, CRIMPING MACHINE OPERATOR [employer] on 12/01/23 16:02 UR Urobilinogen 12 Last Edit by Gladis Estrella, CRIMPING MACHINE OPERATOR FOR [employer] on 12/01/23 16:02 UR Protein Negative Last Edit by Gladis Estrella, CRIMPING MACHINE OPERATOR [employer] on 12/01/23 16:02 UR Ph 6.0 Last Edit by Gladis Estrella, [facility] on 12/01/23 16:02 UR Blood Trace Last Edit by Gladis Estrella, CRIMPING MACHINE OPERATOR FOR [employer] on 12/01/23 16:02 UR Specific Moroni 1.015 Last Edit by Gladis Estrella, CRIMPING MACHINE OPERATOR [employer] on 12/01/23 16:02 UR Ketone Negative Last Edit by Gladis Estrella, CRIMPING MACHINE OPERATOR [employer] on 12/01/23 16:02 UR Bilirubin Negative Last Edit by Gladis Estrelal, CRIMPING MACHINE OPERATOR [employer] on 12/01/23 16:02 UR Glucose Negative Last Edit by Gladis Estrella, [facility] on 12/01/23 16:02 Assessment & Plan Assessment & Plan (1) Pelvic pain: Code(s): R10.2 - Pelvic and perineal pain Plan: Urine test done in the office was negative. GC and chlamydia taken and pelvic ultrasound ordered. Discussed with the patient the differential diagnosis of pelvic pain including but not limited to adnexal, uterine masses, pelvic infections (PID), GI the (Irritable bowel syndrome, diverticulitis, others), musculoskeletal, myofascial pain abdominal wall , adhesions, endometriosis, psychological and others causes. Will check results and treat accordingly. All questions answered, the patient verbalized understanding. Instructed the patient to call or go to emergency room in case of worsening of pelvic pain, fever above 100.4, nausea or vomiting and to schedule follow-up appointment in 2 weeks (2) Microscopic hematuria: Code(s): R31.29 - Other microscopic hematuria Plan: Urine dip showed microscopic hematuria. Will send urine for culture and repeat urine dip in 2 weeks, if persistent microscopic hematuria will proceed with CT scan and urology referral . All questions answered, the patient verbalized understanding Orders: Orders US pelvic and transvaginal Today R10.2 - Pelvic and perineal pain AMB HCG Urine Test Today Z32.02 - Encounter for test, result negative AMB Urinalysis Dipstick Today R10.2 - Pelvic and perineal pain Coding Level of Care Code Est Pt Level 3 (16959) Diagnoses Pelvic pain R10.2 Microscopic hematuria R31.29
== END 2023-12-01 18:36 ==
LOC: HO.HWS 15:40
PROVIDERS: PCP Internal Medicine; Visit Provider Obstetrics & Gynecology
DX: R10.2 Pelvic and perineal pain (principal); R31.29 Other microscopic hematuria; Z32.02 Encounter for pregnancy test, result negative
CPT/HCPCS: 99213

== ENCOUNTER 2023-12-01 15:40 | Outpatient (REF) | payer OTHER, SELFPAY ==
[2023-12-02 02:17] LABS: CT PCR NOT DETECTED (Not Detect.); NG PCR NOT DETECTED (Not Detect.)
== END 2023-12-01 15:41 | disposition home or self-care (01) ==
LOC: HO.LNP 15:40
PROVIDERS: PCP Internal Medicine; Visit Provider Obstetrics & Gynecology
DX: R10.2 Pelvic and perineal pain (principal); R31.29 Other microscopic hematuria
CPT/HCPCS: 0353U; 81002; 81025; 87086; 99212

== ENCOUNTER 2024-06-27 12:53 | Outpatient (AMB) | payer OTHER, SELFPAY ==
--- NOTE | 2024-06-27 12:52 | MHC.OFFVIS ---
Vital Signs 06/27/24 12:53 Height 5 ft 3 in Weight 164 lb BMI 29.0 BP 102/68 Blood Pressure Location Lt brachial Position Sitting Intake Visit Reasons: irreg bleeding Intake Note: Room 1 [employer] Practitioner Required: No Allergies egg [Egg] Allergy (Unknown, Verified 12/01/23 15:51) Anaphylaxis morphine Allergy (Unknown, Verified 12/01/23 15:51) Nausea and Vomiting oxycodone [Percocet] Allergy (Unknown, Verified 12/01/23 15:51) Nausea and Vomiting acetaminophen [From PERCOCET] Adverse Reaction (Unknown, Verified 12/01/23 15:51) NAUSEA & VOMITING Is last menstrual period known: Yes (Spotting for 2 weeks prior, and then a week prior to that as well. ) Last menstrual period: 06/23/24 Post menopausal: No Patient : No HPI Comments Details: The patient is presenting c/o irregular bleeding associated with passage of blood clots and abdominal cramping. it started few months ago and is getting worse no other associated symptoms. The patient has been taking tranexamic acid 650 mg p.o. q.d. for a day 1 to day 5 and her menstrual cycle still heavy but developed intermenstrual bleeding recent Last co testing was in 08/02 was negative PFSH Medical History Migraine with aura History of gallstones Anxiety Bipolar disorder Surgical History History of loop electrical excision procedure (LEEP) Hx of shoulder surgery H/O knee surgery History of hip surgery Family History Maternal Grandfather Colon cancer Maternal Grandmother Ovarian cancer Social History Household Members: Family Alcohol intake: former Patient Tobacco Use Status: Current everyday Tobacco user Tobacco use type: Smokeless Tobacco Substance Use Type: Marijuana Patient : No Current occupational status: employed 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 Female Reproductive History Menstrual Age of Menarche: 11 Date of last menstrual period: 06/23/24 Review of Systems Const All systems reviewed & are unremarkable except as noted in HPI and below Card Reports as per HPI Resp Reports as per HPI GI Reports as per HPI and Reports no additional complaints Reports as per HPI Physical Exam Vital Signs: Last Vital Signs BP 102/68 06/27/24 12:53 BMI result Body Mass Index 29.0 Const General: cooperative, healthy appearing and comfortable Chest Chest palpation & inspection: normal inspection of the chest and normal palpation of entire chest wall Breast/axilla inspection: normal inspection of the breasts and normal inspection of the axillae Breast/axilla palpation: normal palpation of the breasts, normal palpation of the axillae and no axillary lymphadenopathy Resp Effort & Inspection: normal respiratory effort Auscultation: clear to auscultation bilaterally Percussion: percussion normal Cardio Palpation: normal PMI Rate: regular rate Rhythm: regular rhythm Heart sounds: no murmurs and no rubs Peripheral pulses: Peripheral pulses 2+ throughout GI Inspection: Yes normal to inspection Palpation (GI): Soft to palpation, nontender, no guarding, not rigid and No hepatosplenomegaly present Percussion: Yes normal to percussion Auscultation: normal bowel sounds Rectal Exam - Female: deferred General: Yes bladder normal to palpation External Female Exam: No lesion Speculum Exam - Vagina: normal appearance of the vagina, normal palpation, normal vaginal discharge and not erythematous Speculum Exam - Cervix: normal appearance of the cervix and normal palpation Bimanual exam- vagina & uterus: normal bimanual exam, normal palpation, uterine size normal, bladder normal to palpation, consistency normal and normal palpation Bimanual Exam- Adnexa, other: normal adnexae, no masses and no tenderness Assessment & Plan Assessment & Plan (1) Abnormal uterine bleeding (AUB): Code(s): N93.9 - Abnormal uterine and vaginal bleeding, unspecified Category: Medical Plan: UPT done in the office was negative. Co testing not done, GC and chlamydia taken CBC, TSH, prolactin, HCG, and pelvic ultrasound ordered. Discussed with the patient the different causes of abnormal bleeding including thyroid disorders, uterine and ovarian pathology, endometrial hyperplasia, carcinoma and other potential causes. Discussed with the patient the work up including CBC (to r/o anemia), TSH, prolactin, pelvic Ultrasound, endometrial biopsy to r/o endometrial pathology. All questions answered and the patient verbalized understanding. Instructed the patient to schedule an appointment for an endometrial biopsy in 2 weeks. Orders: Orders AMB HCG Urine Test Today Z32.02 - Encounter for test, result negative TSH reflex Free T4 Today N93.9 - Abnormal uterine and vaginal bleeding, unspecified Complete Blood Count no Diff Today N93.9 - Abnormal uterine and vaginal bleeding, unspecified US pelvic and transvaginal Today N93.9 - Abnormal uterine and vaginal bleeding, unspecified Prolactin Today N93.9 - Abnormal uterine and vaginal bleeding, unspecified HCG Quantitative Today N93.9 - Abnormal uterine and vaginal bleeding, unspecified Coding Level of Care Code Est Pt Level 3 (87391) Diagnoses Abnormal uterine bleeding (AUB) N93.9
[2024-06-27 12:53] VITALS: BP 102/68; BMI 29.0
== END 2024-06-27 13:22 | disposition home or self-care (01) ==
LOC: HO.HWS 12:53
PROVIDERS: PCP Internal Medicine; Visit Provider Obstetrics & Gynecology
DX: Z32.02 Encounter for pregnancy test, result negative (principal)
CPT/HCPCS: 99213

== ENCOUNTER 2024-06-27 12:53 | Outpatient (REF) | payer OTHER, SELFPAY ==
[2024-06-27 13:58] LABS: Hemoglobin 13.5 g/dl (12.0-16.0); Mean Corpuscular HGB Conc 35.5 g/dl (31.0-35.0); Mean Corpuscular Hemoglobin 31.1 pg (27.0-33.0); Mean Corpuscular Volume 87.6 fL (80.0-98.0); Platelet Count 253 X10*3/uL (160-400); Red Blood Count 4.34 X10*6/uL (4.20-5.50); White Blood Count 4.4 X10*3/uL (4.8-10.8)
[2024-06-27 14:48] LABS: HCG Quantitative < 2 mIU/mL; TSH reflex Free T4 0.43 uIU/mL (0.32-4.0)
[2024-06-27 17:00] LABS: Alanine Aminotransferase 15 U/L (0-31); Albumin Level 4.1 g/dL (3.5-5.0); Alkaline Phosphatase 47 U/L (39-117); Aspartate Amino Transferase 14 U/L (5-31); Bilirubin Total 0.5 mg/dL (0.0-1.0); Blood Urea Nitrogen 16 mg/dL (9-16); Carbon Dioxide 28 mmol/L (22-29); Chloride 108 mmol/L (96-108); Estimated Glomerular Filt Rate > 60; Glucose Random 84 mg/dL (60-115); Potassium 3.9 mmol/L (3.3-5.1); Sodium 143 mmol/L (135-145); Total Protein 7.1 g/dL (6.5-8.0)
[2024-06-27 17:15] LABS: Anion Gap 11 (12-20)
[2024-06-27 17:30] LABS: T4 Thyroxine 8.1 ug/dL (4.5-12.0)
[2024-06-28 05:12] LABS: CT PCR NOT DETECTED (Not Detect.); NG PCR NOT DETECTED (Not Detect.)
[2024-06-29 07:02] LABS: Prolactin 9.9 ng/mL
[2024-06-30 09:39] LABS: TS Negative Control Passed; TS Panel A 0; TS Panel B 1; TS Positive Control Passed; TSpotTB Negative (Negative)
== END 2024-06-27 12:54 | disposition home or self-care (01) ==
LOC: HO.LAB 12:53
PROVIDERS: Absent Provider Internal Medicine; PCP Internal Medicine; Visit Provider Obstetrics & Gynecology
DX: N93.9 Abnormal uterine and vaginal bleeding, unspecified (principal); R10.9 Unspecified abdominal pain; R10.2 Pelvic and perineal pain; K21.9 Gastro-esophageal reflux disease without esophagitis; E55.9 Vitamin D deficiency, unspecified
CPT/HCPCS: 36415; 80053; 81025; 82306; 84146; 84436; 84443; 84702; 85027; 86481; 87491; 87591; 99212

== ENCOUNTER 2024-06-27 13:40 | Outpatient (REF) | payer OTHER, SELFPAY | END 2024-06-27 13:41 | disposition home or self-care (01) | LOC: HO.LNP 13:40 | PROVIDERS: Visit Provider Obstetrics & Gynecology | DX: Z13.89 Encounter for screening for other disorder (principal) ==

== ENCOUNTER 2025-03-26 16:19 | Outpatient (AMB) | payer OTHER, SELFPAY ==
--- NOTE | 2025-03-26 16:20 | A.OFFPC_ITS ---
Vital Signs 03/26/25 16:28 03/26/25 16:49 Height 5 ft 3 in Weight 82.554 kg BMI 32.2 BP 130/110 H 122/70 Respiration 14 Pulse 84 Pulse Source Pulse Oximeter Temp 98.3 F Temp Source Temporal Artery Scan Pulse Oximetry (%) 98 Oxygen Delivery Method Room Air Intake Visit Reasons: Annual Client Server Programmer Required: No Accompanied by: Partner Allergies egg [Egg] Allergy (Unknown, Verified 03/26/25 16:25) Anaphylaxis morphine Allergy (Unknown, Verified 03/26/25 16:25) Nausea and Vomiting oxycodone [Percocet] Allergy (Unknown, Verified 03/26/25 16:25) Nausea and Vomiting acetaminophen [From PERCOCET] Adverse Reaction (Unknown, Verified 03/26/25 16:) NAUSEA & VOMITING HPI HPI Comments History of Present Illness Details 34-year-old female with history of migra rafaela with aura, anxiety, bipolar disorder, GERD presents to the office today accompanied by her partner for management of chronic conditions and to establish care. She currently lives at home with her partner. 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 She is a former smoker who quit 6 months ago. She started age 10, about 1 pack per day. Denies any significant alcohol consumption. No history of drug use including marijuana. GERD-managed with omeprazole 20 mg daily Bipolar disorder/anxiety-symptoms stable. Occasional anxiety, but managed with lifestyle. No tate/depression/SI History HPV/ALBERTA II/III-s/p LEEP procedure. following closely with letterpress setter. Last Pap negative for HPV Migraines-with aura. Has not had any recent migraines following initiation of norethindrone Concerns: None Health maintenance: Last Pap smear 07/2023, next due 07/2028 ROS: General: No fevers, malaise, unintentional weight loss HEENT: No blurred vision, diplopia. No sore throat, nasal congestion, rhinorrhea, sinus pain, ear pain Neck - no adenopathy Cardiovascular: No chest pain, palpitations, or leg edema Respiratory: No shortness of breath, wheezing, cough GI: No abdominal pain, nausea, vomiting, diarrhea, constipation, melena, hematochezia : No dysuria, hematuria, increased urinary frequency, decreased urinary output MSK: No myalgia, back pain, arthralgias Neuro: No headaches, weakness, paresthesias Psych: no depression/anxiery. No AH/VH. No SI/HI Skin: No rashes or lesions EXAM: Constitutional - Awake and Alert, No apparent distress Eyes - PERRLA, EOMI. Anicteric Nose- septum midline, nares clear, no sinus tenderness Mouth/throat- mucosa moist, tongue and uvula midline, no erythema/edema or tonsillar adenopathy. Neck-trachea midline, thyroid symmetric without palpable nodules, no adenopathy Cardiovascular - S1S2, RRR, No edema Respiratory - Normal lung expansion, Normal respiratory effort, No respiratory distress, CTA bilaterally Gastrointestinal - NT / ND; +BS; No rebound or guarding - No CVA tenderness Extremities - no calf tenderness bilaterally, no swelling Musculoskeletal - Normal inspection, normal ROM Skin - Warm/Dry Neurological - Alert & oriented x3, CN II-XII in tact, 5/5 strength BUE and BLE Psychological - Appropriate affect PFSH Medical History (Updated 03/26/25 @ 16:57 by SRIKANTH Pate) Migraine with aura History of gallstones Anxiety Bipolar disorder Surgical History History of loop electrical excision procedure (LEEP) Hx of shoulder surgery H/O knee surgery History of hip surgery Family History (Updated 03/26/25 @ 16:41 by SRIKANTH Pate) Maternal Grandfather Colon cancer Diabetes Maternal Grandmother Ovarian cancer Mother Breast cancer Lung cancer Lupus (systemic lupus erythematosus) Social History Household Members: Family Alcohol intake: former Patient Tobacco Use Status: Former Tobacco user Substance Use Type: Marijuana Current occupational status: employed 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 1. Little interest or pleasure in doing things: not at all 2. Feeling down, depressed, or hopeless: not at all 3. Trouble falling or staying asleep, or sleeping too much: not at all 4. Feeling tired or having little energy: not at all 5. Poor appetite or overeating: not at all 6. Feeling bad about yourself - or that you are a failure or have let yourself or your family down: not at all 7. Trouble concentrating on things, such as reading the newspaper or watching television: not at all 8. Moving or speaking so slowly that other people could have noticed. Or the opposite - being so fidgety or restless that you have been moving around a lot more than usual: not at all 9. Thoughts that you would be better off or of hurting yourself in some way: not at all Total score: 0 Source: Developed by Drs. Sadiq Julien, Viviane Syed, Ryland Viveros and colleagues, with an educational dillon from [employer]. Thrive Questionnaire Date Thrive assessed: 03/26/25 I am a: Patient What is your living situation today?: I have a steady place to live Within the past 12 months, did the food you bought not last and you didn't have the money to get more?: Never true Within the past 12 months, did you worry whether your food would run out before you got money to buy more?: Never true Do you have trouble paying for medicines?: No Do you have trouble getting transportation to medical appointments?: No Do you have trouble paying your heating and electricity bill?: No Do you have trouble taking care of your child, family member or friend?: No Do you have trouble with day-to-day activities such as bathing, preparing meals, shopping, managing finances, etc.?: No Are you currently unemployed and looking for a job?: No Are you interested in more education?: No Please select the resources that you would like help with: None THRIVE Score: 0 BETTY-7 AMB Questionnaire BETTY-7 Date BETTY - 7 assessed: 03/26/25 Feeling nervous, anxious, or on edge: 0 = Not at all Not being able to stop or control worryin = Not at all Worrying too much about different things: 0 = Not at all Trouble relaxin = Not at all Being so restless that it is hard to sit still: 0 = Not at all Becoming easily annoyed or irritable: 0 = Not at all Feeling afraid as if something awful might happen: 0 = Not at all Total BETTY-7 score (0-4 normal; 5-9 mild; 10-14 moderate; 15-21 severe): 0 Source: Developed by Drs. Sadiq Julien, Viviane Syed, Ryland Viveros and colleagues, with an educational dillon from [employer]. Physical exam (Primary Care) Vital Signs: Last Vital Signs Temp 98.3 F 03/26/25 16:28 Pulse 84 03/26/25 16:28 Resp 14 03/26/25 16:28 BP 130/110 H 03/26/25 16:28 Pulse Ox 98 03/26/25 16:28 Oxygen Delivery Method Room Air 03/26/25 16:28 BMI result Body Mass Index 32.2 Tobacco/Smoking Status: Tobacco use Status Patient Tobacco Use Status Current everyday Tobacco 03/26/25 16:21 Tobacco use type Smokeless Tobacco 03/26/25 16:21 PHQ-9: PHQ-9 Score PHQ-9: Total score 0 03/26/25 16:33 Thrive Assessment: Date of Thrive Assessment Date Thrive assessed 03/26/25 03/26/25 16:30 Coding Level of Care Code Est Pt Level 4 (50883) New Pt Prev Care 18-39yr(47170 Diagnoses Routine medical exam Z00.00 Migraine with aura G43.109 Anxiety F41.9 Bipolar disorder F31.9 Assessment & Plan Assessment & Plan (1) Routine medical exam: Code(s): Z00.00 - Encounter for general adult medical examination without abnormal findings Category: Medical Plan: 34-year-old female in good state of general health. 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 Continue norethindrone (3) Anxiety: Code(s): F41.9 - Anxiety disorder, unspecified Category: Medical Plan: Stable. Continue with lifestyle changes for management (4) Bipolar disorder: Code(s): F31.9 - Bipolar disorder, unspecified Category: Medical Plan: Stable. Will continue monitoring Plan Follow-up in 1 year for annual physical exam. Labs to be completed following visit. Orders: Orders Basic Metabolic Panel Today Z00.00 - Encounter for general adult medical examination without abnormal findings Lipid Panel Today Z00.00 - Encounter for general adult medical examination without abnormal findings Liver Panel Today Z00.00 - Encounter for general adult medical examination without abnormal findings Vitamin D 25-OH Total Today Z00.00 - Encounter for general adult medical examination without abnormal findings Complete Blood Count Auto Diff Today Z00.00 - Encounter for general adult medical examination without abnormal findings Hemoglobin A1c Today Z00.00 - Encounter for general adult medical examination without abnormal findings
[2025-03-26 16:28] VITALS: BP 130/110; PULSE 84; RESP 14; TEMP 36.8; O2SAT 98; BMI 32.2
[2025-03-26 16:49] VITALS: BP 122/70
== END 2025-03-26 16:58 | disposition home or self-care (01) ==
LOC: HO.HMCHD 16:20
PROVIDERS: PCP Internal Medicine; Visit Provider Physician Assistant
DX: Z00.00 Encounter for general adult medical examination without abnormal findings (principal); G43.109 Migraine with aura, not intractable, without status migrainosus; F41.9 Anxiety disorder, unspecified; F31.9 Bipolar disorder, unspecified

== ENCOUNTER → 2025-03-26 16:19 | Outpatient (BNVA) | payer OTHER, SELFPAY | PROVIDERS: PCP Internal Medicine; Visit Provider Physician Assistant | DX: Z00.00 Encounter for general adult medical examination without abnormal findings (principal); G43.109 Migraine with aura, not intractable, without status migrainosus; F41.9 Anxiety disorder, unspecified; F31.9 Bipolar disorder, unspecified; Z13.30 Encounter for screening examination for mental health and behavioral disorders, unspecified | CPT/HCPCS: 99385 ==